=== PATIENT | female | born 1940 | race Caucasian/White ===

== ENCOUNTER 2019-05-02 23:15 | Observation (INO) | payer MEDICARE, OTHER, SELFPAY ==
[2019-05-02 23:18] VITALS: BP 156/103; PULSE 125; RESP 22; TEMP 36.6; O2SAT 94; BMI 29.8
--- NOTE | 2019-05-02 23:21 | XR_ITS ---
WS: [id number] CHEST XRAY TECHNIQUE: Portable chest. CLINICAL INFORMATION: cough COMPARISON: March 06, 2019 FINDINGS: Heart: Normal cardiac silhouette. Lungs: Chronic emphysematous changes. No acute pulmonary infiltrates. No focal pneumonia. Bones: Normal visualized bony structures. XR/XR chest 1V portable [id number] IMPRESSION: No acute chest findings
--- NOTE | 2019-05-02 23:21 | ECG_ITS ---
Measurements Intervals [place] Rate: 113 P: 57 ND: 152 QRS: 12 QRSD: 126 T: 74 QT: 347 QTc: 477 SINUS TACHYCARDIA WITH OCCASIONAL VENTRICULAR PREMATURE COMPLEXES LEFT BUNDLE BRANCH BLOCK [120+ ms QRS DURATION, 80+ ms Q/S IN V1/V2, 85+ ms R IN I/aVL/V5/V6] WARNING: DATA QUALITY MAY AFFECT INTERPRETATION Compared to ECG 03/06/2019 17:18:59 Ventricular premature complex(es) now present Left bundle-branch block now present Sinus rhythm no longer present Myocardial infarct finding no longer present Electronically Signed On 05-03-2019 18:32:56 STAFFING OPERATIONS MANAGER by Laurent Lynch M.D. [id number]
--- NOTE | 2019-05-02 23:24 | ED_ITS ---
Entered by Noa Gaines, acting as scribe for Maddy Khan HPI - Chest Pain General: Chief Complaint: Chest Pain Stated Complaint: CP, SOB Time Seen by Provider: 05/02/19 23:20 Source: patient Mode of arrival: ambulatory Limitations: no limitations History of Present Illness: HPI narrative: 79 yo m came to the er pov for chest pain. Onset was today. Pt states that she has had a cold for 3 weeks. PT states that the chest pain feels heavy started 2 hours ago. Pt states that she tried her breathing machine, Pt is not having any nausea or vomiting at this time. MD complaint: chest pain Pertinent past history: other (CHF) Onset (ago): hour(s) (2 hours ago) Timing of current episode: episodic and still present Prior episodes: Yes Onset: during rest Pain location: substernal Pain radiation: none Severity: mild Quality: heaviness Relieving factors: nothing Exacerbating factors: nothing Context: recent illness Associated symptoms: Reports dyspnea; Deny abdominal pain, diaphoresis, fever(s), nausea, palpitations, syncope or vomiting Related Data: On Oral Contraceptives: No Review of Systems General: Reports: other (negative unless marked) Const: Denies: fever, chills, body aches, fatigue, malaise or diaphoresis Eyes: Denies: change in vision or blurry vision ENMT: Denies: throat pain, painful swallowing, hoarseness, ear pain, ear discharge, Change in hearing or nasal discharge Card: Reports: chest pain and shortness of breath on exertion; Denies: palpitations, irregular heart rhythm, syncope, pre-syncope or shortness of breath when lying down Resp: Reports: shortness of breath, productive cough and wheezing; Denies: non-productive cough, coughing up blood or chest congestion GI: Denies: abdominal pain, nausea, vomiting, vomiting blood, coffee grounds in vomit, diarrhea, constipation, cramping, blood in stool or black tarry stool : Denies: flank pain, painful urination, urinary frequency, urinary urgency, decreased urine ouput, urinary incontinence or blood in urine Musc: Denies: neck pain, back pain, extremity pain, extremity swelling, joint pain, joint swelling, joint warmth or joint stiffness Skin/Breast: Denies: rash, skin tenderness or yellow skin Neuro: Denies: headache, numbness in extremities, weakness in extremities, changes in sensation, lack of coordination, difficulty walking, dizziness, vertigo or confusion Endo: Denies: excessive thirst, tired all the time, cold intolerance, excessive sweating, flushing or hot flashes Ayaan/Lymph: Denies: easy bruising, easy bleeding, petechiae or enlarged lymph nodes All/Imm: Denies: hives, throat swelling, tongue swelling, facial swelling or acute wheezing PFSH ED PFSH: Statuses (acute, chronic, etc) shown below reflect problem list status as previously entered and may not be historically accurate Medical History Atrial fibrillation (Acute) CHF (congestive heart failure) (Acute) Chronic anticoagulation (Acute) CKD stage 3 due to type 2 diabetes mellitus (Acute) COPD (chronic obstructive pulmonary disease) (Acute) CVA (cerebral vascular accident) (Acute) Diabetes mellitus (Acute) Gastroesophageal reflux (Acute) GI disease (Acute) Heart disease (Acute) Heart failure with preserved ejection fraction (Acute) Hypertension (Acute) Lung disease (Acute) Neuropathy (Acute) Peripheral neuropathy (Acute) Pulmonary embolism (Acute) Smoker (Acute) Surgical History H/O tubal ligation (Acute) H/O: hemorrhoidectomy (Acute) Family History Denies family history of CAD (coronary artery disease) Cancer Social History Smoking and tobacco status: never smoked Alcohol intake: never Substance/Drug Use: never Household members: spouse Housing: House Marital status: Physical Exam Const: COMMON NORMALS: no apparent distress, oriented x3, no limitations, healthy appearing and well nourished EXAM LIMITATIONS: no altered mental status GENERAL APPEARANCE: cooperative, well kempt and well developed ORIENTATION/CONSCIOUSNESS: Yes awake HENMT: COMMON NORMALS: normocephalic, head/scalp atraumatic, hearing grossly normal bilaterally, external ears normal, EAC's normal, external nose normal and moist oral mucous membranes HEAD & SCALP: normal to inspection, normocephalic and atraumatic FACE & SINUS: normal facial exam and face symmetric NOSE: external nose normal and nares normal EXTERNAL EAR: Yes external ears normal EXTERNAL AUDITORY CANAL: EAC's normal MOUTH: oral and palatal mucosa normal and tongue normal Eye: COMMON NORMALS: PERRL, EOMs intact bilaterally, conjunctivae normal and no scleral icterus GENERAL EYE: normal appearance of both eyes and normal light reflex CONJUNCTIVA: Yes conjunctivae normal SCLERA: sclerae normal CORNEA: Yes corneas normal PUPIL: Yes PERRL DIRECT OPHTHALMOSCOPY: Yes normal light reflex Neck/C-Spine: COMMON NORMALS: full ROM, no lymphadenopathy, supple, no meningeal signs and no JVD GENERAL: Yes normal visual inspection and Yes trachea midline CERVICAL SPINE: Yes cervical ROM normal Chest: COMMONS NORMALS: inspection of chest normal and palpation of chest normal Resp: EFFORT & INSPECTION: Yes pursed lip breathing, Yes labored, Yes actively coughing and Yes audible wheezes AUSCULTATION: rhonchi and wheezes Cardio: COMMON NORMALS: no JVD, S1 normal heart sound, S2 normal heart sound, no gallops, no clicks, no murmurs and no rub JUGULAR VENOUS DISTENTION: no JVD RATE: tachycardic RHYTHM: abnormal rhythm irregularly irregular HEART SOUNDS: S1 normal and S2 normal GI: COMMON NORMALS: soft to palpation, non-tender, no hepatosplenomegaly and no masses INSPECTION: Yes normal to inspection PALPATION: Yes soft and Yes no hepatosplenomegaly : COMMON NORMALS: Yes no CVA tenderness BLADDER/KIDNEY EXAM: Yes no CVA tenderness Back/Pelvis: COMMON NORMALS: no CVA tenderness, thoracic and lumbar spine normal to inspection, no thoracic nor lumbar tenderness and thoraco-lumbar ROM normal Extremity: COMMON NORMALS: normal to inspection, full ROM, normal capillary refill, no joint enlargement, no clubbing, cyanosis or edema and no calf tenderness Neuro: COMMON NORMALS: oriented x3, CN's II-XII intact bilaterally, moves all extremities, no focal motor deficits and no sensory deficits noted MENINGEAL SIGNS: Yes no meningeal signs Psych: COMMON NORMALS: mental status grossly normal, thought process normal, cooperative, affect normal, speech normal and activity/motor behavior normal APPEARANCE: Yes well kempt SPEECH: Yes normal speech THOUGHT PROCESS: normal thought process Skin: COMMON NORMALS: no rashes or lesions noted, skin turgor normal, no jaundice, no petechiae and no mottling GENERAL SKIN EXAM: no rashes or lesions noted and turgor normal Course Vital Signs: Vital signs: Vital Signs Temperature 98.3 F 05/03/19 03:22 Pulse Rate 114 H 05/03/19 03:35 Respiratory Rate 17 05/03/19 03:35 Blood Pressure 153/82 05/03/19 03:22 Pulse Oximetry 96 05/03/19 03:35 MDM - Chest Pain MDM Narrative: Medical decision making narrative: Arrival -Janet is a very nice 79-year-old female who comes in complaining of chest heaviness. Her vital signs reveal tachycardia. She is short of breath. She claims at times she is been diaphoretic with this. Differential is considerable including COPD exacerbation, heart failure exacerbation, acute coronary syndrome, anxiety, pulmonary embolism among many others. PE is unlikely as the patient is on Eliquis. Patient has audible wheezing so I believe COPD exacerbation is more likely we will proceed with testing and treatments of her shortness of breath with nebulizers and steroids and reevaluate. Admit -the patient is very anxious and even with anxiety medication has not tolerated BiPAP and was barely able to tolerate breathing treatments. She repeatedly had to have these interrupted because of her anxiety. Ultimately she feels about 25% better and can still speak and has no conversational dyspnea. On repeat exam she has inspiratory and expiratory wheezing but is moving more air than previous. We attempted BiPAP but she did not tolerate this at all. We had given her a small dose of Ativan to decrease her anxiety so that she would tolerate BiPAP and I had reviewed this with Dr. Faustin and he agreed that a small dose would be appropriate for this reason to not exceed this. Unfortunately it did not work. I have informed her that the most I can continue to do at this time is intermittent breathing treatments and hopefully the steroids will kick in and she will feel better. She is agreeable to this and wants to stay. I see no sign of acute OH as the patient's second troponin is negative. She did receive nitroglycerin but had no improvement from this. The case was reviewed with Dr. Faustin and he is agreeable to admission. Lab Data: Attestation: I reviewed the patient's lab results. Labs: Lab Results 05/02/19 05/02/19 05/02/19 Range/Units 23:38 23:38 23:38 WBC 9.6 (4.0-10.0) 10^3/ uL RBC 4.16 (4.1-5.3) 10^6/u L Hgb 13.5 (11.5-15.3) g/dL Hct 41.1 (37.0-47.0) % MCV 98.8 (81-99) fL MCH 32.5 (28.0-34.0) pg MCHC 32.8 (30.0-36.0) g/dL RDW 12.0 L (12.1-15.1) % Plt Count 318 (130-400) 10^3/c mm MPV 11.4 H (7.4-10.4) fL Neut % (Auto) 66.0 % Lymph % (Auto) 23.6 % Love % (Auto) 6.9 % Eos % (Auto) 2.6 % Baso % (Auto) 0.6 % Neut # (Auto) 6.3 (1.8-7.7) 10^3/u L Lymph # (Auto) 2.3 (0.8-4.8) 10^3/u L Love # (Auto) 0.7 (0.2-0.9) 10^3/u L Eos # (Auto) 0.3 (0.0-0.8) 10^3/u L Baso # (Auto) 0.1 (0.0-0.1) 10^3/u L Nucleated RBC % (a uto) 0 % Nucleated RBCs # 0.0 /100WBC PT 14.40 H (10.5-13.3) SECO NDS INR 1.08 (0.8-1.2) Specimen Type Sample Site ABG pH (7.35-7.45) ABG pCO2 (35-45) mmHg ABG pO2 (80.0-100.0) mmH g ABG HCO3 (22-26) mmol/L ABG Base Excess (-2.0-2.0) mmol/ L Pratik Test Hematocrit (37-47) % O2 Delivery Device O2 Liters/Min % Parts Counterperson ID Sodium 138 (136-145) mmol/L Potassium 3.8 (3.5-5.1) mmol/L Chloride 94 L (98-107) mmol/L Carbon Dioxide 28 (22-29) mmol/L Anion Gap 19.8 H (5-19) BUN 24 H (8-23) mg/dL Creatinine 1.1 H (0.5-0.9) mg/dL Glucose 371 H (74-106) mg/dL Calcium 11.8 H (8.5-10.5) mg/dL Magnesium 1.8 (1.7-2.3) mg/dL Total Bilirubin 0.4 (0.15-1.2) mg/dL AST 46 H (0-32) U/L ALT 53 H (0-33) U/L Alkaline Phosphata se 76 (35-105) IU/L Troponin T Baselin e (0-10) ng/mL Troponin T 120 Min [place] (0-10) ng/mL Delta Troponin T (0-10) ABS# NT-Pro-B Natriuret Pep 254 (0-450) pg/mL Total Protein 7.5 (6.6-8.7) g/dL Albumin 4.2 (3.5-5.2) g/dL Globulin 3.3 (1.3-4.6) g/dL Influenza Type A A g (Negative) POC Influenza B Ag (Negative) 05/02/19 05/02/19 05/02/19 Range/Units 23:38 23:49 23:57 WBC (4.0-10.0) 10^3/ uL RBC (4.1-5.3) 10^6/u L Hgb (11.5-15.3) g/dL Hct (37.0-47.0) % MCV (81-99) fL MCH (28.0-34.0) pg MCHC (30.0-36.0) g/dL RDW (12.1-15.1) % Plt Count (130-400) 10^3/c mm MPV (7.4-10.4) fL Neut % (Auto) % Lymph % (Auto) % Love % (Auto) % Eos % (Auto) % Baso % (Auto) % Neut # (Auto) (1.8-7.7) 10^3/u L Lymph # (Auto) (0.8-4.8) 10^3/u L Love # (Auto) (0.2-0.9) 10^3/u L Eos # (Auto) (0.0-0.8) 10^3/u L Baso # (Auto) (0.0-0.1) 10^3/u L Nucleated RBC % (a uto) % Nucleated RBCs # /100WBC PT (10.5-13.3) SECO NDS INR (0.8-1.2) Specimen Type Arterial Sample Site Brachial, right ABG pH 7.46 H (7.35-7.45) ABG pCO2 41.8 (35-45) mmHg ABG pO2 111.0 H (80.0-100.0) mmH g ABG HCO3 29.6 H (22-26) mmol/L ABG Base Excess 5.2 H (-2.0-2.0) mmol/ L Pratik Test Pos Hematocrit 40.9 (37-47) % O2 Delivery Device Nc O2 Liters/Min 2.0 % Parts Counterperson ID [email or web address] Sodium (136-145) mmol/L Potassium (3.5-5.1) mmol/L Chloride (98-107) mmol/L Carbon Dioxide (22-29) mmol/L Anion Gap (5-19) BUN (8-23) mg/dL Creatinine (0.5-0.9) mg/dL Glucose (74-106) mg/dL Calcium (8.5-10.5) mg/dL Magnesium (1.7-2.3) mg/dL Total Bilirubin (0.15-1.2) mg/dL AST (0-32) U/L ALT (0-33) U/L Alkaline Phosphata se (35-105) IU/L Troponin T Baselin e 27 H (0-10) ng/mL Troponin T 120 Min [place] (0-10) ng/mL Delta Troponin T (0-10) ABS# NT-Pro-B Natriuret Pep (0-450) pg/mL Total Protein (6.6-8.7) g/dL Albumin (3.5-5.2) g/dL Globulin (1.3-4.6) g/dL Influenza Type A A g Negative (Negative) POC Influenza B Ag Negative (Negative) 05/03/19 Range/Units 01:29 WBC (4.0-10.0) 10^3/ uL RBC (4.1-5.3) 10^6/u L Hgb (11.5-15.3) g/dL Hct (37.0-47.0) % MCV (81-99) fL MCH (28.0-34.0) pg MCHC (30.0-36.0) g/dL RDW (12.1-15.1) % Plt Count (130-400) 10^3/c mm MPV (7.4-10.4) fL Neut % (Auto) % Lymph % (Auto) % Love % (Auto) % Eos % (Auto) % Baso % (Auto) % Neut # (Auto) (1.8-7.7) 10^3/u L Lymph # (Auto) (0.8-4.8) 10^3/u L Love # (Auto) (0.2-0.9) 10^3/u L Eos # (Auto) (0.0-0.8) 10^3/u L Baso # (Auto) (0.0-0.1) 10^3/u L Nucleated RBC % (a uto) % Nucleated RBCs # /100WBC PT (10.5-13.3) SECO NDS INR (0.8-1.2) Specimen Type Sample Site ABG pH (7.35-7.45) ABG pCO2 (35-45) mmHg ABG pO2 (80.0-100.0) mmH g ABG HCO3 (22-26) mmol/L ABG Base Excess (-2.0-2.0) mmol/ L Pratik Test Hematocrit (37-47) % O2 Delivery Device O2 Liters/Min % Parts Counterperson ID Sodium (136-145) mmol/L Potassium (3.5-5.1) mmol/L Chloride (98-107) mmol/L Carbon Dioxide (22-29) mmol/L Anion Gap (5-19) BUN (8-23) mg/dL Creatinine (0.5-0.9) mg/dL Glucose (74-106) mg/dL Calcium (8.5-10.5) mg/dL Magnesium (1.7-2.3) mg/dL Total Bilirubin (0.15-1.2) mg/dL AST (0-32) U/L ALT (0-33) U/L Alkaline Phosphata se (35-105) IU/L Troponin T Baselin e (0-10) ng/mL Troponin T 120 Min [place] 22.47 H (0-10) ng/mL Delta Troponin T -4.53 L (0-10) ABS# NT-Pro-B Natriuret Pep (0-450) pg/mL Total Protein (6.6-8.7) g/dL Albumin (3.5-5.2) g/dL Globulin (1.3-4.6) g/dL Influenza Type A A g (Negative) POC Influenza B Ag (Negative) EKG Data^: EKG 1: EKG interpretation date: 05/03/19 EKG interpretation time: 23:32 Interpretation: Normal sinus rhythm at 113 beats a minute, left bundle branch block, artifact present, PVC, unchanged from previous with a new left bundle branch block Discharge Plan Discharge Patient Disposition: Placed in Observation Admit Provider: Laurent Faustin Clinical Impression: COPD (chronic obstructive pulmonary disease) Qualifiers: COPD type: COPD with acute exacerbation Qualified Code(s): J44.1 - Chronic obstructive pulmonary disease with (acute) exacerbation Discharge Date/Time: 05/03/19 03:23 Coding Level of Care Code ED Human Resource Officer for Chg Fwd Exam Problem Focused The documentation recorded by the Eder fry Stephanie Lyn, accurately reflects the service I personally performed and the decisions made by Bill poon Eli N May 02, 2019 23:15
[2019-05-02 23:51] LABS: Basophils # 0.1 10^3/uL (0.0-0.1); Basophils % 0.6 %; Eosinophils # 0.3 10^3/uL (0.0-0.8); Eosinophils % 2.6 %; Hematocrit 41.1 % (37.0-47.0); Hemoglobin 13.5 g/dL (11.5-15.3); Lymphocytes # 2.3 10^3/uL (0.8-4.8); Lymphocytes % 23.6 %; Mean Corpuscular HGB Conc 32.8 g/dL (30.0-36.0); Mean Corpuscular Hemoglobin 32.5 pg (28.0-34.0); Mean Corpuscular Volume 98.8 fL (81-99); Mean Platelet Volume 11.4 fL (7.4-10.4); Monocytes # 0.7 10^3/uL (0.2-0.9); Monocytes % 6.9 %; Neutrophils # 6.3 10^3/uL (1.8-7.7); Nucleated Red Blood Cells % 0 %; Platelet Count 318 10^3/cmm (130-400); Red Blood Count 4.16 10^6/uL (4.1-5.3); White Blood Count 9.6 10^3/uL (4.0-10.0)
[2019-05-02] MEDS: ipratropium 0.5 mg/2.5 mL Neb 1.5 MG INHALATION (23:53)
[2019-05-02] MEDS: levalbuterol 1.25 mg/3 mL Neb 3.75 MG INHALATION (23:53)
[2019-05-02 23:55] VITALS: PULSE 110; RESP 19; O2SAT 95
[2019-05-03] VITALS (19 sets, daily range): BP systolic 94–153; BP diastolic 56–84; PULSE 86–124; RESP 17–35; TEMP 36.6–36.8; O2SAT 82–100
[2019-05-03 00:02] LABS: INR 1.08 (0.8-1.2)
[2019-05-03 00:08] LABS: ABG PCO2 41.8 mmHg (35-45); ABG PH Result 7.46 (7.35-7.45); Arterial Blood Gas Hematocrit 40.9 % (37-47); Base Excess ABG 5.2 mmol/L (-2.0-2.0); Blood Gas Allen Test Pos; Blood Gas Sample Site Brachial, right; Blood Gas Sample Type Arterial; HCO3 ABG 29.6 mmol/L (22-26); Oxygen Device NC
[2019-05-03 00:10] LABS: Troponin(5th) Baseline 27 ng/mL (0-10)
[2019-05-03 00:17] LABS: Alanine Aminotransferase 53 U/L (0-33); Albumin Level 4.2 g/dL (3.5-5.2); Alkaline Phosphatase 76 IU/L (35-105); Anion Gap 19.8 (5-19); Aspartate Amino Transferase 46 U/L (0-32); Blood Urea Nitrogen 24 mg/dL (8-23); Calcium 11.8 mg/dL (8.5-10.5); Carbon Dioxide 28 mmol/L (22-29); Chloride 94 mmol/L (98-107); Globulin 3.3 g/dL (1.3-4.6); Glucose 371 mg/dL (74-106); Magnesium 1.8 mg/dL (1.7-2.3); NT Pro B Type Natriuretic Pept 254 pg/mL (0-450); Potassium 3.8 mmol/L (3.5-5.1); Sodium 138 mmol/L (136-145); Total Bilirubin 0.4 mg/dL (0.15-1.2); Total Protein 7.5 g/dL (6.6-8.7)
[2019-05-03 00:22] LABS: Influenza A by IFA Negative (Negative); Influenza B by IFA Negative (Negative)
[2019-05-03] MEDS: nitroglycerin 0.4 mg sublingual Tablet SUBLINGUAL (00:28)
--- NOTE | 2019-05-03 00:39 | PC.NURSE ---
Patient c/o inability of breathe, dr. wong at bedside, marvin advised patient to attempt another breathing treatment
--- NOTE | 2019-05-03 01:21 | ECG_ITS ---
Measurements Intervals [place] Rate: 115 P: 65 GA: 180 QRS: -2 QRSD: 135 T: 153 QT: 360 QTc: 500 SINUS TACHYCARDIA WITH OCCASIONAL VENTRICULAR PREMATURE COMPLEXES LEFT BUNDLE BRANCH BLOCK [120+ ms QRS DURATION, 80+ ms Q/S IN V1/V2, 85+ ms R IN I/aVL/V5/V6] Compared to ECG 03/06/2019 17:18:59 Ventricular premature complex(es) now present Left bundle-branch block now present Sinus rhythm no longer present Myocardial infarct finding no longer present Electronically Signed On 05-03-2019 18:36:40 TRACK BROOM OPERATOR by Laurent Lynch M.D. [id number]
[2019-05-03] MEDS: ondansetron 2 mg/ML SDV 2 mL 4 MG IVP (01:25)
[2019-05-03] MEDS: LORazepam 2 mg/mL INJ 1 mL 0.25 MG IVP ×2 (01:26→01:55)
[2019-05-03 02:18] LABS: Troponin 5 2HR 22.47 ng/mL (0-10)
[2019-05-03 02:26] LABS: Troponin 5 2HR Delta -4.53 ABS# (0-10)
--- NOTE | 2019-05-03 02:32 | P.HP_ITS ---
Providers/Chief Complaint Chief Complaint: CHEST PAIN History of Present Illness Janet Cooper is a 79 year old female who carries diagnosis of COPD and uses oxygen on as-needed basis not on appropriate COPD inhalers at home came in with chief complaint of shortness of breath. Patient is stating that for last few weeks she has been getting more shortness of breath. Earlier it was only on exertion now is happening at rest and because of her increased breathing rate she started feeling some chest discomfort underneath her breasts bilaterally which made her very anxious, she is denying any fever, flulike symptoms, sinusitis, she is endorsing that she thinks her ears are plugged and she experienced sore throat along her symptoms. She did not take any antibiotics. No recent traveling, no fever, cough, sputum production, dysuria, diarrhea or constipation. She is not very active at home because of her arthritis and multiple surgeries. She is on Eliquis, she takes Cardizem 300 mg for A. fib, she only takes albuterol nebulizer and inhaler at home she does not have any laba, Lama, ICS Diagnostics in ER showed respiratory alkalosis normal white count, she had audible wheezing on admission with pursed lip breathing which improved with steroids, she is claustrophobic and cannot use BiPAP, she was given Ativan to decrease her respiratory rate and work of breathing BNP not high X-ray negative for acute pathology EKG did not show ischemic changes When I interviewed her she was calmer, systolic blood pressure was 140, heart rate 122 A. fib RVR Mild wheezing but no conversational dyspnea Review of Systems Const: Reports: body aches, fatigue and malaise; Denies: fever, chills or change in appetite Eyes: Denies: change in vision or blurry vision ENMT: Denies: throat pain or uvular edema Card: Reports: chest pain, palpitations and irregular heart rhythm; Denies: edema or syncope Resp: Reports: shortness of breath, non-productive cough and wheezing GI: Denies: abdominal pain or nausea : Reports: urinary dribbling; Denies: flank pain Musc: Reports: back pain; Denies: neck pain Skin/Breast: Denies: rash Neuro: Denies: headache Psych: Denies: anxiety Endo: Denies: excessive urination Ayaan/Lymph: Denies: easy bruising All/Imm: Denies: hives Medications/Allergies Allergies Allergy/AdvReac Type Severity Reaction Status Date / Time Penicillins Allergy ALGY-Hives Verified 05/02/19 23:24 spironolactone Allergy ADR-Nausea Verified 05/02/19 23:24 Sulfa (Sulfonamide Allergy ADR-Nausea Verified 05/02/19 23:24 Antibiotics) sulfamethoxazole Allergy ADR-Nausea Verified 05/02/19 23:24 [From Bactrim] trimethoprim [From Bactrim] Allergy ADR-Nausea Verified 05/02/19 23:24 PFSH Acute PFSH: Statuses (acute, chronic, etc) shown below reflect problem list status as previously entered and may not be historically accurate Medical History Atrial fibrillation (Acute) CHF (congestive heart failure) (Acute) Chronic anticoagulation (Acute) CKD stage 3 due to type 2 diabetes mellitus (Acute) COPD (chronic obstructive pulmonary disease) (Acute) CVA (cerebral vascular accident) (Acute) Diabetes mellitus (Acute) Gastroesophageal reflux (Acute) GI disease (Acute) Heart disease (Acute) Heart failure with preserved ejection fraction (Acute) Hypertension (Acute) Lung disease (Acute) Neuropathy (Acute) Peripheral neuropathy (Acute) Pulmonary embolism (Acute) Smoker (Acute) Surgical History (Updated 05/02/19 @ 23:52 by Noa Gaines) H/O tubal ligation (Acute) H/O: hemorrhoidectomy (Acute) Family History (Updated 05/03/19 @ 03:10 by Laurent Faustin MD) Denies family history of CAD (coronary artery disease) Cancer Social History (Updated 05/03/19 @ 03:10 by Laurent Faustin MD) Smoking and tobacco status: never smoked Alcohol intake: never Substance/Drug Use: never Household members: spouse Housing: House Marital status: Vitals/I&O/Wt Last Vital Signs Temp 98 F 05/02/19 23:18 Pulse 116 H 05/03/19 02:00 Resp 20 H 05/03/19 02:00 BP 104/67 05/03/19 02:00 Pulse Ox 94 05/03/19 02:00 Weight last 48 hrs Weight 94.347 kg Physical Exam Narrative: EXAM NARRATIVE: Very pleasant female Currently she does not have any pursed lip breathing or audible wheezing no conversational dyspnea no use of respiratory accessory muscle She has mild expiratory wheezing bilaterally with adequate airflow bilaterally A. fib RVR variable S1-S2 no signs of heart failure positive JVD or murmur Abdomen soft nontender nondistended bowels are present Lower extremity no signs of edema Skin does not show any signs of ischemia gangrene ulcer Neurologically nonfocal exam Appropriate mood and affect She appears very anxious and is claustrophobic to use BiPAP. EOMI, PERRLA Hyperemic posterior pharyngeal wall without any exudative changes Data : 05/02/19 23:38 05/02/19 23:38 A&P Assessment and plan (1) COPD exacerbation: Status: Acute Code(s): J44.1 - Chronic obstructive pulmonary disease with (acute) exacerbation (2) Bronchitis: Status: Acute Code(s): J40 - Bronchitis, not specified as acute or chronic Additional A&P Information COPD exacerbation secondary to upper airway infection Patient is not on appropriate medications at home she is only using short acting beta agonist She is not using inhaled steroids on long-acting muscarinic antgonist or long- acting beta agonist Currently her wheezing has improved steroids, she cannot use BiPAP because of claustrophobia I will keep her on prednisone 40 mg for at least 2 to 3 days Will use a azithromycin for anti-inflammatory effect and upper airway infection No signs of pneumonia A. fib RVR Will check TSH, magnesium level, she takes Cardizem 300 mg at home I would add Coreg for better rate control Anticoagulated with Eliquis To avoid tachycardia would use Xopenex Chronic PE, anticoagulated with Eliquis Type 2 diabetes with neuropathy: Moderate sliding scale with consistent carbohydrate diet Anticipating she will be discharged in less than 48 hours She needs better medication reconciliation for discharge and a consult to partner Dr. Bassett for better control of symptoms, she might like [facility] Attestations Medical Necessity Statement*: Anticipating her discharge in less than 48 hours, currently needs stay for active wheezing because of COPD exacerbation better medication reconciliation on discharge Time Spent in Patient Care: 50 Coding Level of Care Code Acute Cross Country/Track And Field Coach for Jarettg Fwd Diagnoses COPD exacerbation J44.1 Bronchitis J40
[2019-05-03] MEDS: doxycycline 100 mg Tablet 200 MG PO (02:46)
--- NOTE | 2019-05-03 03:23 | PC.NURSE ---
called report to Shruthi on
[2019-05-03] MEDS: levalbuterol 0.63 mg/3 mL Neb INHALATION ×4 (03:35→20:35)
--- NOTE | 2019-05-03 05:21 | ECG_ITS ---
Measurements Intervals [place] Rate: 112 P: 51 WI: 248 QRS: -23 QRSD: 130 T: -4 QT: 372 QTc: 510 SINUS TACHYCARDIA WITH FIRST DEGREE AV BLOCK WITH OCCASIONAL ECTOPIC PREMATURE COMPLEXES POSSIBLE LEFT ATRIAL ENLARGEMENT [-0.1mV P WAVE IN V1/V2] LEFT BUNDLE BRANCH BLOCK [120+ ms QRS DURATION, 80+ ms Q/S IN V1/V2, 85+ ms R IN I/aVL/V5/V6] Compared to ECG 03/06/2019 17:18:59 First degree AV block now present Left bundle-branch block now present Sinus rhythm no longer present Myocardial infarct finding no longer present Electronically Signed On 05-03-2019 18:36:45 MANNEQUIN MOUNTER by Laurent Lynch M.D. [id number]
[2019-05-03] MEDS: sodium chloride 0.9% 1,000 ML 100 ML IV (05:29)
[2019-05-03 06:23] LABS: Basophils % 0.3 %; Eosinophils % 0.1 %; Hematocrit 39.8 % (37.0-47.0); Hemoglobin 12.9 g/dL (11.5-15.3); Lymphocytes # 0.5 10^3/uL (0.8-4.8); Lymphocytes % 5.9 %; Mean Corpuscular HGB Conc 32.4 g/dL (30.0-36.0); Mean Corpuscular Hemoglobin 32.6 pg (28.0-34.0); Mean Corpuscular Volume 100.5 fL (81-99); Mean Platelet Volume 11.8 fL (7.4-10.4); Monocytes # 0.1 10^3/uL (0.2-0.9); Neutrophils # 7.4 10^3/uL (1.8-7.7); Neutrophils % 92.2 %; Nucleated Red Blood Cells % 0 %; Platelet Count 278 10^3/cmm (130-400); Red Blood Count 3.96 10^6/uL (4.1-5.3)
[2019-05-03 06:43] LABS: Glucose Point of Care 497 mg/dL (70-110)
[2019-05-03 06:44] LABS: Troponin 5 6HR 24.38 ng/L (0-10)
[2019-05-03 06:47] LABS: Troponin 5 6HR Delta -2.62 ng/L (0-12)
[2019-05-03 07:09] LABS: Anion Gap 20.2 (5-19); Blood Urea Nitrogen 27 mg/dL (8-23); Calcium 11.3 mg/dL (8.5-10.5); Carbon Dioxide 27 mmol/L (22-29); Chloride 92 mmol/L (98-107); Magnesium 1.7 mg/dL (1.7-2.3); Osmolality Calculated 301 mOsm/kg (285-295); Potassium 4.2 mmol/L (3.5-5.1); Sodium 135 mmol/L (136-145); Thyroid Stimulating Hormone 0.45 uIU/mL (0.27-4.20)
[2019-05-03 07:12] LABS: Glucose 528 mg/dL (74-106)
[2019-05-03] MEDS: predniSONE 20 mg Tablet 40 MG PO (08:49)
[2019-05-03] MEDS: dilTIAZem ER (24HR) 300 mg Capsule PO (08:49)
[2019-05-03] MEDS: azithromycin 250 mg Tablet PO (08:49)
[2019-05-03] MEDS: carvedilol 6.25 mg Tablet PO ×2 (08:49→17:58)
[2019-05-03] MEDS: apixaban 5 mg Tablet 2.5 MG PO ×2 (08:50→17:58)
[2019-05-03] MEDS: ipratropium 0.5 mg/2.5 mL Neb INHALATION ×3 (09:46→20:35)
[2019-05-03 11:53] LABS: Glucose Point of Care 550 mg/dL (70-110)
[2019-05-03 11:53] LABS: Glucose Point of Care 541 mg/dL (70-110)
--- NOTE | 2019-05-03 12:28 | PC.NURSE ---
Notified Dr. Carl of BS greater than 500. She advised to follow SS and administer 16 units.
[2019-05-03 16:21] LABS: Glucose Point of Care 346 mg/dL (70-110)
[2019-05-03 17:45] LABS: Glucose Point of Care 284 mg/dL (70-110)
[2019-05-03] MEDS: acetaminophen 325 mg Tablet 650 MG PO (21:26)
--- NOTE | 2019-05-03 21:35 | PM.PN ---
Subjective Subjective: Interval history: seen and examined this afternoon at ~4pm. No complaints. States breathing is significantly improved. Blood sugar running high this afternoon at ~500s, last anion gap 20 this morning, with sliding scale insulin, last blood sugar corrected to 284. No h/o insulin use at home. Last a1c 6.1 per patient history. 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 reports no previously spirometry testing. States she is not aware if 02 was ordered for an alternate diagnosis such as CHF or PE. Currently her wheezing has improved steroids, she cannot use BiPAP because of claustrophobia Reduce Prednisone to 20mg qd given grossly elevated blood sugar. Continue Azithromycin for COPD exacerbation No signs of pneumonia A. fib RVR Currently rate controlled Anticoagulated with Eliquis Chronic PE, anticoagulated with Eliquis Type 2 diabetes with neuropathy: continue moderate sliding scale with meals and corrective as needed. Will avoid aggressive scale in insulin naive patient to prevent insulin stacking and resultant hypoglycemia. Last blood sugar 280s. Check Hba1c. continue with consistent carbohydrate diet Full code Attestations Medical Necessity Statement*: Optimization of respiratory status , management of blood sugar Coding Level of Care Code Acute Manager Pharmacy for [facility] Fwd Diagnoses COPD exacerbation J44.1 Bronchitis J40
[2019-05-03 21:37] LABS: Glucose Point of Care 281 mg/dL (70-110)
[2019-05-04] VITALS (15 sets, daily range): BP systolic 101–119; BP diastolic 59–68; PULSE 68–92; RESP 16–26; TEMP 36.6–36.9; O2SAT 87–97
[2019-05-04 00:38] LABS: Glucose Point of Care 245 mg/dL (70-110)
[2019-05-04] MEDS: LORazepam 0.5 mg Tablet 0.25 MG PO (01:09)
[2019-05-04] MEDS: levalbuterol 0.63 mg/3 mL Neb INHALATION ×4 (03:19→20:09)
[2019-05-04] MEDS: ipratropium 0.5 mg/2.5 mL Neb INHALATION ×4 (03:19→20:09)
[2019-05-04 05:56] LABS: Basophils % 0.1 %; Hematocrit 38.5 % (37.0-47.0); Hemoglobin 12.3 g/dL (11.5-15.3); Lymphocytes # 1.7 10^3/uL (0.8-4.8); Mean Corpuscular HGB Conc 31.9 g/dL (30.0-36.0); Mean Corpuscular Hemoglobin 30.7 pg (28.0-34.0); Mean Platelet Volume 11.5 fL (7.4-10.4); Monocytes # 0.9 10^3/uL (0.2-0.9); Neutrophils # 12.5 10^3/uL (1.8-7.7); Neutrophils % 82.4 %; Nucleated Red Blood Cells % 0 %; Platelet Count 351 10^3/cmm (130-400); Red Blood Count 4.01 10^6/uL (4.1-5.3); Red Cell Distribution Width 11.9 % (12.1-15.1); White Blood Count 15.1 10^3/uL (4.0-10.0)
[2019-05-04 06:07] LABS: Alanine Aminotransferase 44 U/L (0-33); Albumin Level 3.7 g/dL (3.5-5.2); Alkaline Phosphatase 62 IU/L (35-105); Anion Gap 19.3 (5-19); Aspartate Amino Transferase 36 U/L (0-32); Blood Urea Nitrogen 32 mg/dL (8-23); Calcium 11.3 mg/dL (8.5-10.5); Carbon Dioxide 27 mmol/L (22-29); Chloride 96 mmol/L (98-107); Globulin 3.4 g/dL (1.3-4.6); Glucose 176 mg/dL (74-106); Potassium 4.3 mmol/L (3.5-5.1); Sodium 138 mmol/L (136-145); Total Bilirubin 0.5 mg/dL (0.15-1.2); Total Protein 7.1 g/dL (6.6-8.7)
[2019-05-04 07:25] LABS: Estmated Average Glucose 200; Hemoglobin A1C 8.6 % (4.0-6.0)
[2019-05-04] MEDS: apixaban 5 mg Tablet 2.5 MG PO ×2 (08:27→18:31)
[2019-05-04] MEDS: carvedilol 6.25 mg Tablet PO ×2 (08:28→18:31)
[2019-05-04] MEDS: dilTIAZem ER (24HR) 300 mg Capsule PO (08:28)
[2019-05-04] MEDS: predniSONE 20 mg Tablet PO (08:28)
[2019-05-04] MEDS: azithromycin 250 mg Tablet PO (08:32)
[2019-05-04 10:54] LABS: Glucose Point of Care 249 mg/dL (70-110)
--- NOTE | 2019-05-04 13:27 | PC.CHAP ---
Pastoral Care Encounter/Spiritual Assessment Type of Contact [] Declined real estate clerk visit [] Patient/Family/Request visit [] Outpatient visit [] Follow-up visit [] Physician referral [] Code/Alert [] Routine visit [] Staff referral [] Actively dying [x] Patient sleeping [] Family support [] [] Out of room [] Palliative care [] [] Receiving care in room [] Pre-surgical visit [] Trauma [] Long length of stay [] ICU visit [] Other: Relational/Emotional Strength [] Patient feels connected with others/family/visitors/staff [] Distress [] Loneliness/isolation [] Abandonment Spirituality of Patient [] Person of Raine [] Attends Confucianism of their [place] [] Believes in Prayer [] Reads Bible or Jehovah'S Witness materials [] There are Spiritual issues to be addressed Regional Clinical Director Interventions [] Prayer [] Active listening [] Non-anxious presence [] Spiritual/emotional support [] Crisis/trauma care [] Spiritual counseling [] Bereavement support [] Provided bereavement packet [] Provided Bible/devotional materials [] Provided toy/stuffed animal, coloring book to patient or family member [] Provided Communion [] Anointing/[place] [] Salvation [] Completed spiritual assessment [] Other: Impact on Illness or Injury [] Angry [] Fearful [] Anxious [] Often cries [] Exhaustion [] Unable to work [] Unable to attend oriental orthodox [] Unable to walk/stand [] Unable to read [] Unable to drive [] Unable to eat/drink [] Unable to sleep [] Unable to be with family [] Patient intubated [] Other: Summary Patient sleeping. Time spent with patient
--- NOTE | 2019-05-04 14:18 | PM.DCS ---
Discharge Providers Date of Admission: 05/03/19 02:29 Date of Discharge: 05/04/19 Attending Provider at Admission: Laurent Faustin MD Attending Provider at Discharge: Kenya Carl MD Diagnoses at Discharge Discharge Diagnosis (1) COPD exacerbation: Status: Acute (2) Bronchitis: Status: Acute Reason for Visit Reason for Visit: Reason For Visit: CHEST PAIN Hospital Course Discharge Summary: Janet Cooper is a 79 year old female who carries diagnosis of COPD and uses oxygen on as-needed basis COPD inhalers at home came in with chief complaint of shortness of breath. Patient is stating that for last few weeks she has been getting more shortness of breath. Earlier it was only on exertion now is happening at rest and because of her increased breathing rate she started feeling some chest discomfort underneath her breasts bilaterally which made her very anxious, she is denying any fever, flulike symptoms, sinusitis, she is endorsing that she thinks her ears are plugged and she experienced sore throat along her symptoms. She did not take any antibiotics. No recent traveling, no fever, cough, sputum production, dysuria, diarrhea or constipation. She is not very active at home because of her arthritis and multiple surgeries. She is on Eliquis, she takes Cardizem 300 mg for A. fib, she only takes albuterol nebulizer and inhaler at home she does not have any laba, Lama, ICS Diagnostics in ER showed respiratory alkalosis normal white count, she had audible wheezing on admission with pursed lip breathing which improved with steroids, she is claustrophobic and cannot use BiPAP, she was given Ativan to decrease her respiratory rate and work of breathing BNP not high X-ray negative for acute pathology EKG did not show ischemic changes When I interviewed her she was calmer, systolic blood pressure was 140, heart rate 122 A. fib RVR Mild wheezing but no conversational dyspnea Discharge Data Data Completed and Pending: Completed Studies During Hospitalization Category Date Time Status XR chest 1V gio ble [id number] Stat Exams 05/02/19 23:21 Completed Pending at discharge Category Date Time Status Arterial Blood Ga s W/O Coox Routine Lab 05/03/19 11:00 Ordered Labs from last 24 hours 05/04/19 05/04/19 05/04/19 10:36 05:15 05:15 WBC RBC Hgb Hct MCV MCH MCHC RDW Plt Count MPV Neut % (Auto) Lymph % (Auto) [place] % (Auto) Eos % (Auto) Baso % (Auto) Neut # (Auto) Lymph # (Auto) [place] # (Auto) Eos # (Auto) Baso # (Auto) Nucleated RBC % (a uto) Nucleated RBCs # Sodium 138 Potassium 4.3 Chloride 96 L Carbon Dioxide 27 Anion Gap 19.3 H BUN 32 H Creatinine 1.2 H Glucose 176 H POC Glucose 249 Estimat Average Gl ucose 200 Hemoglobin A1c 8.6 H Calcium 11.3 H Total Bilirubin 0.5 AST 36 H ALT 44 H Alkaline Phosphata se 62 Total Protein 7.1 Albumin 3.7 Globulin 3.4 05/04/19 05/04/19 05/03/19 05:15 00:28 21:33 WBC 15.1 H RBC 4.01 L Hgb 12.3 Hct 38.5 MCV 96.0 MCH 30.7 MCHC 31.9 RDW 11.9 L Plt Count 351 MPV 11.5 H Neut % (Auto) 82.4 Lymph % (Auto) 11.0 [place] % (Auto) 6.0 Eos % (Auto) 0.0 Baso % (Auto) 0.1 Neut # (Auto) 12.5 H Lymph # (Auto) 1.7 [place] # (Auto) 0.9 Eos # (Auto) 0.0 Baso # (Auto) 0.0 Nucleated RBC % (a uto) 0 Nucleated RBCs # 0.0 Sodium Potassium Chloride Carbon Dioxide Anion Gap BUN Creatinine Glucose POC Glucose 245 281 Estimat Average Gl ucose Hemoglobin A1c Calcium Total Bilirubin AST ALT Alkaline Phosphata se Total Protein Albumin Globulin 05/03/19 05/03/19 17:41 15:29 WBC RBC Hgb Hct MCV MCH MCHC RDW Plt Count MPV Neut % (Auto) Lymph % (Auto) [place] % (Auto) Eos % (Auto) Baso % (Auto) Neut # (Auto) Lymph # (Auto) [place] # (Auto) Eos # (Auto) Baso # (Auto) Nucleated RBC % (a uto) Nucleated RBCs # Sodium Potassium Chloride Carbon Dioxide Anion Gap BUN Creatinine Glucose POC Glucose 284 346 Estimat Average Gl ucose Hemoglobin A1c Calcium Total Bilirubin AST ALT Alkaline Phosphata se Total Protein Albumin Globulin Vitals: Last Vital Signs Temp 98.0 F 05/04/19 12:00 Pulse 76 05/04/19 12:00 Resp 18 05/04/19 12:00 BP 107/66 05/04/19 12:00 Pulse Ox 97 05/04/19 12:00 Discharge Plan Discharge Prescriptions: No Action gabapentin 300 mg capsule 300 mg PO TID RF: 0 diclofenac sodium 75 mg tablet,delayed release (DR/EC) 75 mg PO BID RF: 0 ascorbic acid (vitamin C) 1,000 mg Tablet 1,000 mg PO BID RF: 0 Klor-Con 10 10 mEq Tablet Extended Release 10 meq PO DAILY RF: 0 diltiazem HCl 300 mg Capsule,Extended Release 24 Hr 300 mg PO DAILY RF: 0 Acetaminophen Extra Strength 500 mg Tablet 500 mg PO QID PRN (Reason: Fever Or Pain) RF: 0 methenamine hippurate 1 gram Tablet 1 g PO BID RF: 0 Lasix 80 mg Tablet 80 mg PO DAILY RF: 0 B Complex-Vitamin B12 Tablet 1 tab PO DAILY RF: 0 albuterol sulfate 90 mcg/actuation Hfa Aerosol Inhaler 2 puff INHALATION QID PRN (Reason: Shortness Of Breath) RF: 0 fluoxetine 20 mg Capsule 20 mg PO DAILY RF: 0 glipizide 5 mg Tablet 5 mg PO BID RF: 0 Eliquis 2.5 mg PO BID RF: 0 Prolia See Rx Instructions .ROUTE .COMPLEX RF: 0 albuterol sulfate 2.5 mg inhalation PRN PRN (Reason: Shortness Of Breath Or Wheezing) RF: 0 Coding Level of Care Code Acute Group Insurance Specialist for [facility] Fwd Diagnoses COPD exacerbation J44.1 Bronchitis J40
[2019-05-04 16:03] LABS: Glucose Point of Care 244 mg/dL (70-110)
[2019-05-04 21:10] LABS: Glucose Point of Care 224 mg/dL (70-110)
--- NOTE | 2019-05-04 21:58 | PM.PN ---
Subjective Subjective: Interval history: patient was seen and examined earlier this morning and then again this afternoon. Was originally planned for discharge as she has improved dyspnea, currently saturating well on 3lpm , which is her home 02 requirement. However, patient has been experiencing anxiety surrounding the discharge and this evening started to complain of feeling no more improved since arrival. She reports feeling as if something is stuck in her throat thats impeding her breathing and states she often hears sounds from the throat followed by shortness of breath. Blod sugar better controlled. 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 reports no previously spirometry testing. States she is not aware if 02 was ordered for an alternate diagnosis such as CHF or PE. Currently her wheezing has improved steroids, she cannot use BiPAP because of claustrophobia Reduce Prednisone to 20mg qd given grossly elevated blood sugar. Continue Azithromycin for COPD exacerbation No signs of pneumonia Though she appears to be clinically improving, patient continues to state she does not feel right. Today reports having throat discomfort and a foreign body sensation Will consult ENT tomorrow A. fib RVR Currently rate controlled Anticoagulated with Eliquis Chronic PE, anticoagulated with Eliquis Type 2 diabetes with neuropathy: continue moderate sliding scale with meals and corrective as needed. Will avoid aggressive scale in insulin naive patient to prevent insulin stacking and resultant hypoglycemia. A1c 8.7, which indicates inadequate blood sugar control in previous months. continue with consistent carbohydrate diet Full code Attestations Medical Necessity Statement*: awaiting symptomatic improvement Coding Level of Care Code Acute Bobbin Cleaner for Zeenat Calderon Diagnoses COPD exacerbation J44.1 Bronchitis J40
[2019-05-05] VITALS (11 sets, daily range): BP systolic 104–127; BP diastolic 50–64; PULSE 66–90; RESP 18–20; TEMP 36.1–37; O2SAT 91–98
[2019-05-05] MEDS: levalbuterol 0.63 mg/3 mL Neb INHALATION ×2 (03:26→10:17)
[2019-05-05] MEDS: ipratropium 0.5 mg/2.5 mL Neb INHALATION ×2 (03:26→10:17)
[2019-05-05 06:41] LABS: Glucose Point of Care 139 mg/dL (70-110)
--- NOTE | 2019-05-05 07:44 | CT_ITS ---
WS: [id number] CT scan of the neck. Additional two-dimensional coronal and sagittal reconstruction was performed. Clinical Data: persisting foreign body sensation in pharynx Comparison: CT neck, 09/20/2017. DLP: 713.[address] scans at [facility] use at least one of these dose optimization techniques: automat ed exposure control; mA and/or kV adjustment per patient size (includes targeted exams where dose is matched to clinical indication); or iterative reconstruction. Findings: No lymphadenopathy is noted. The salivary glands are unremarkable. There is no prevertebral soft tiss ue swelling. The larynx is symmetric. The thyroid gland shows enlargement of the left lobe. The floor of the mouth and parapharyngeal spaces are normal. No radiopaque pharyngeal masses are seen. There i s calcification in the regions of the carotid bifurcations The oral cavity is unremarkable. The patie nt has had bilateral cataract surgery and extensive maxillary dental surgery. The lung apices show no abnormalities. The cervical spine shows osteoarthritic change with loss of no rmal lordotic curvature. There is degenerative disc disease from C3-C4 through C6-C7. No compression fractures are seen. No erosion of the skull base is seen. CT/CT neck wo con [id number] Impression: 1. Negative for abnormal pharyngeal foreign body. 2. No change in left thyroid nodule. 3. Osteoarthritis and degenerative disc disease cervical spine unchanged.
--- NOTE | 2019-05-05 07:45 | CT_ITS ---
WS: [id number] CT CHEST TECHNIQUE: Noncontrast CT of the chest with coronal and sagittal reformatted images. CLINICAL INFORMATION: shortness of breath persistent COMPARISON: CT chest April 01, 2016 DLP: 877.[address] scans at [facility] use at least one of these dose optimization techniques: automat ed exposure control; mA and/or kV adjustment per patient size (includes targeted exams where dose is matched to clinical indication); or iterative reconstruction. FINDINGS: Mild chronic emphysematous changes. No acute pulmonary infiltrates. Slight nodular pleural thickening left upper lobe is unchanged. Pleural fluid along the left fissure. Slight subsegmental atelectasis in the lingula. No suspicious pulmonary parenchymal opacities. Vascular calcification including coron wally. No mediastinal or hilar lymphadenopathy. No axillary lymphadenopathy. Multinodular thyroid gland with thyroid nodules along the isthmus and left lobe unchanged from previo us. Largest nodule in the isthmus measures 2.0 CM. This can be followed up with ultrasound. Diffuse fatty infiltration liver. Adrenal glands are normal. Splenic granulomas. Normal GE junction. Chronic compression of the T12 superior endplate and L1 vertebral body. CT/CT chest wo con [id number] IMPRESSION: 1. Mild chronic emphysematous changes. No acute pulmonary infiltrates. 2. No suspicious pulmonary parenchymal opacities. 3. No mediastinal or hilar lymphadenopathy. 4. Vascular calcification including coronary. 5. Diffuse fatty infiltration liver. 6. Left renal cyst measuring 2.1 cm. 7. Chronic compression superior endplate T12. Chronic biconcave compression at L1.
[2019-05-05] MEDS: azithromycin 250 mg Tablet PO (08:43)
[2019-05-05] MEDS: apixaban 5 mg Tablet 2.5 MG PO ×2 (08:43→17:55)
[2019-05-05 08:44] LABS: Basophils % 0.4 %; Eosinophils # 0.1 10^3/uL (0.0-0.8); Eosinophils % 1.1 %; Hematocrit 37.4 % (37.0-47.0); Lymphocytes % 25.9 %; Mean Corpuscular HGB Conc 32.1 g/dL (30.0-36.0); Mean Corpuscular Hemoglobin 31.2 pg (28.0-34.0); Mean Corpuscular Volume 97.1 fL (81-99); Mean Platelet Volume 11.4 fL (7.4-10.4); Monocytes # 0.5 10^3/uL (0.2-0.9); Neutrophils # 4.9 10^3/uL (1.8-7.7); Neutrophils % 65.2 %; Nucleated Red Blood Cells % 0 %; Platelet Count 269 10^3/cmm (130-400); Red Blood Count 3.85 10^6/uL (4.1-5.3); White Blood Count 7.5 10^3/uL (4.0-10.0)
[2019-05-05] MEDS: predniSONE 20 mg Tablet PO (08:46)
[2019-05-05] MEDS: dilTIAZem ER (24HR) 300 mg Capsule PO (08:46)
[2019-05-05] MEDS: carvedilol 6.25 mg Tablet PO ×2 (08:46→17:56)
[2019-05-05 09:03] LABS: Alanine Aminotransferase 72 U/L (0-33); Albumin Level 3.6 g/dL (3.5-5.2); Alkaline Phosphatase 57 IU/L (35-105); Anion Gap 13.7 (5-19); Aspartate Amino Transferase 103 U/L (0-32); Blood Urea Nitrogen 24 mg/dL (8-23); Calcium 10.7 mg/dL (8.5-10.5); Carbon Dioxide 27 mmol/L (22-29); Chloride 104 mmol/L (98-107); Globulin 2.7 g/dL (1.3-4.6); Glucose 163 mg/dL (74-106); Potassium 3.7 mmol/L (3.5-5.1); Sodium 141 mmol/L (136-145); Total Bilirubin 0.3 mg/dL (0.15-1.2); Total Protein 6.3 g/dL (6.6-8.7)
[2019-05-05 10:38] LABS: Glucose Point of Care 226 mg/dL (70-110)
[2019-05-05 17:05] LABS: Glucose Point of Care 292 mg/dL (70-110)
--- NOTE | 2019-05-05 17:08 | P.DS_ITS ---
Discharge Providers Date of Admission: 05/03/19 02:29 Date of Discharge: Date of Discharge: May 05, 2019 Attending Provider at Admission: Laurent Faustin MD Attending Provider at Discharge: Kenya Carl MD Diagnoses at Discharge Discharge Diagnosis (1) COPD exacerbation: Status: Acute (2) Bronchitis: Status: Acute Reason for Visit Reason for Visit: Reason For Visit: CHEST PAIN Hospital Course Discharge Summary: Janet Cooper is a 79 year old female who carries diagnosis of COPD and uses oxygen on as-needed basis, on albuterol inhaler prn at home. Patient is stating that for last few weeks she has been getting more s hortness of breath. Earlier it was only on exertion now is happening at rest and because of her increased breathing rate she started feeling some chest discomfort underneath her breasts bilaterally which made her very anxious, she is denying any fever, flulike symptoms, sinusitis, she is endorsing that she thinks her ears are plugged and she experienced sore throat along her symptoms. She did not take any antibiotics. No recent traveling, no fever, cough, sputum production, dysuria, diarrhea or constipation. She is on Eliquis for a/c. Diagnostics in ER showed respiratory alkalosis normal white count, she had audible wheezing on admission with pursed lip breathing which improved with steroids, she is claustrophobic and cannot use BiPAP. BNP not high. X-ray and later CT chest non contrast negative for acute pathology. EKG did not show ischemic changes. Troponin was negative. She improved with nebulization, supplemental 02. Hospital course was noatble for hyperglycemia after receiving 125mg iv solumedrol. This improved with insulin use. Her A1c returned at 8.7 indicating suboptimal blood sugar control at home recently. She also remained extremely anxious and on 05/04 complained of sensation something stuck in her throat and making her hard to breathe . CT of the neck was performed. No pharyngeal abnormalities noted. Enlarged thyroid was noted for which patient follows with Dr. Rubi as outpatient. No obstruction from mass. Patient is more relaxed today after results of CT. She will need outpatient follow up with pulmonolgy for further w/up of COPD. For now i have started her on salmetrol/fluticasone and atrovent inhalers. Alubterol can continue prn if needed. Doxycycline was stopped on discharge.AST/ALT were noted to be elevated, may be 2/2 doxycycline which has been discontinued. Will need to be followed up with PCP next week. 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2 Lymph % (Auto) 25.9 [place] % (Auto) 7.0 Eos % (Auto) 1.1 Baso % (Auto) 0.4 Neut # (Auto) 4.9 Lymph # (Auto) 2.0 [place] # (Auto) 0.5 Eos # (Auto) 0.1 Baso # (Auto) 0.0 Nucleated RBC % (a uto) 0 Nucleated RBCs # 0.0 Sodium Potassium Chloride Carbon Dioxide Anion Gap BUN Creatinine Glucose POC Glucose 292 226 Calcium Total Bilirubin AST ALT Alkaline Phosphata se Total Protein Albumin Globulin 05/05/19 05/05/19 05/04/19 08:12 06:29 21:01 WBC RBC Hgb Hct MCV MCH MCHC RDW Plt Count MPV Neut % (Auto) Lymph % (Auto) [place] % (Auto) Eos % (Auto) Baso % (Auto) Neut # (Auto) Lymph # (Auto) [place] # (Auto) Eos # (Auto) Baso # (Auto) Nucleated RBC % (a uto) Nucleated RBCs # Sodium 141 Potassium 3.7 Chloride 104 Carbon Dioxide 27 Anion Gap 13.7 BUN 24 H Creatinine 0.9 Glucose 163 H POC Glucose 139 224 Calcium 10.7 H Total Bilirubin 0.3 AST 103 H ALT 72 H Alkaline Phosphata se 57 Total Protein 6.3 L Albumin 3.6 Globulin 2.7 Vitals: Last Vital Signs Temp 98.6 F 05/05/19 16:48 Pulse 76 05/05/19 16:48 Resp 18 05/05/19 16:48 BP 106/50 05/05/19 16:48 Pulse Ox 91 05/05/19 16:48 Discharge Plan Discharge Patient Disposition: Home, Self-Care Condition: Stable Prescriptions: New Atrovent HFA 17 mcg/actuation HFA aerosol inhaler 1 inh INHALATION Q6H PRN (Reason: shortness of breath or wheezing) Qty: 1 RF: 1 Advair Diskus 250-50 mcg/dose blister with device 1 inh INHALATION BID Qty: 1 RF: 2 Continued gabapentin 300 mg capsule 300 mg PO TID RF: 0 ascorbic acid (vitamin C) 1,000 mg Tablet 1,000 mg PO BID RF: 0 Klor-Con 10 10 mEq Tablet Extended Release 10 meq PO DAILY RF: 0 diltiazem HCl 300 mg Capsule,Extended Release 24 Hr 300 mg PO DAILY RF: 0 Acetaminophen Extra Strength 500 mg Tablet 500 mg PO QID PRN (Reason: Fever Or Pain) RF: 0 methenamine hippurate 1 gram Tablet 1 g PO BID RF: 0 Lasix 80 mg Tablet 80 mg PO DAILY RF: 0 B Complex-Vitamin B12 Tablet 1 tab PO DAILY RF: 0 albuterol sulfate 90 mcg/actuation Hfa Aerosol Inhaler 2 puff INHALATION QID PRN (Reason: Shortness Of Breath) RF: 0 fluoxetine 20 mg Capsule 20 mg PO DAILY RF: 0 glipizide 5 mg Tablet 5 mg PO BID RF: 0 Eliquis 2.5 mg PO BID RF: 0 Prolia See Rx Instructions .ROUTE .COMPLEX RF: 0 albuterol sulfate 2.5 mg inhalation PRN PRN (Reason: Shortness Of Breath Or Wheezing) RF: 0 Discontinued diclofenac sodium 75 mg tablet,delayed release (DR/EC) 75 mg PO BID RF: 0 Discharge Orders: Discharge Order (Routine); Ordered 05/05/19 Ordered By: Kenya Carl Other Ambulatory Orders: DME: Oxygen (Order) Location: None Selected Ordered By: Kenya Carl Referrals: Timi Rubi MD [Physician] - 2 weeks (Call the office and make an appointment to be seen in 2 weeks.) Edmond Bassett MD [Physician] - 2 weeks (Call the office and make a appointment to be seen in 2 weeks.) Discharge Diet: Usual diet Discharge Activity: Resume usual activity Patient Instructions: Bronchitis (Acute) - Adult, Ipratropium (By breathing), Fluticasone/Salmeterol (By breathing), Chronic Obstructive Pulmonary Disease (DC), COPD Stoplight Discharge Attestations Time Spent in Discharge Care*: greater than 30 min Quality Metrics Clinical Quality Measures During this hospital stay, did patient experience: None Coding Level of Care Code Acute Manager Installation for [employer] Fwd Diagnoses COPD exacerbation J44.1 Bronchitis J40
--- NOTE | 2019-05-05 17:57 | PC.RESP ---
Patient given information for Pulmonary Rehab
[2019-05-10 10:11] LABS: Glucose Point of Care 194 mg/dL (70-110)
--- NOTE | 2019-05-19 15:32 | PC.SOCIAL ---
Call placed to patient to follow up. She did see a SENIOR SPEECH PATHOLOGIST since Dr Landry is out of town. Blood work was done but she has not heard back. Advised to follow up on Wednesday on results. NO further medications prescribed. She is still short of breath but is the same. Has not improved or worsened. No Cough and no fever noted. She was encouraged to do deep breathing exercises. She is wearing O2. She does have her appt made with Dr Rubi on 05/25/2019, Dr Bassett on 05/30/2019 and her eye appt on 05/23/2019 for surgery. No concerns voiced to this nurse and no questions voiced when asked. Updated Dr Carl
== END 2019-05-05 18:13 | disposition home or self-care (01) ==
LOC: ER 23:37 → MEDSURG 05-03 02:44
PROVIDERS: Admitting Provider Internal Medicine; Emergency Provider Emergency Medicine; Family Provider Family Medicine; Visit Provider Student in an Organized Health Care Education/Training Program
DX: J44.1 Chronic obstructive pulmonary disease with (acute) exacerbation (principal); J40 Bronchitis, not specified as acute or chronic; Z99.81 Dependence on supplemental oxygen; Z79.01 Long term (current) use of anticoagulants; I48.91 Unspecified atrial fibrillation; I11.0 Hypertensive heart disease with heart failure; I50.9 Heart failure, unspecified; Z86.73 Personal history of transient ischemic attack (TIA), and cerebral infarction without residual deficits; K21.9 Gastro-esophageal reflux disease without esophagitis; E11.42 Type 2 diabetes mellitus with diabetic polyneuropathy; E11.22 Type 2 diabetes mellitus with diabetic chronic kidney disease; I13.0 Hypertensive heart and chronic kidney disease with heart failure and stage 1 through stage 4 chronic kidney disease, or unspecified chronic kidney disease; N18.3 Chronic kidney disease, stage 3 (moderate); Z82.49 Family history of ischemic heart disease and other diseases of the circulatory system
CPT/HCPCS: 12345; 36415; 36416; 36600; 70490; 71045; 71250; 80048; 80053; 82803; 82962; 83036; 83735; 83880; 84443; 84484; 85025; 85610; 87804; 93005; 94640; 96372; 96374; 96375; 96376; 99283; 99291; G0378; J1815; J2060; J2405; J2930; J7030; J7512; J7614; J7644; Q0144

== ENCOUNTER 2019-06-19 13:29 | Outpatient (CLI) | payer MEDICARE, OTHER, SELFPAY ==
--- NOTE | 2019-06-19 14:46 | PFTS_ITS ---
Date of Study:06/19/2019 Date of Dictation: MECHANICS: Forced vital capacity (FVC) is reduced. Forced expiratory volume in one second (FEV1) is reduced. FEV1/FVC is reduced. FLOW VOLUME LOOP: Reduced flow at all lung volumes with significant scooping. LUNG VOLUMES: Total lung capacity and residual volume are not measured. DIFFUSING CAPACITY FOR CARBON MONOXIDE: Moderately reduced. INTERPRETATION: The pulmonary function tests are consistent with moderate obstruction. A component of restriction cannot be ruled out as lung volumes are not measured. There is no significant postbronchodilator response. Gas exchange (DLCO) is moderately reduced. MTDD
== END 2019-06-19 13:30 | disposition home or self-care (01) ==
LOC: RT 13:34
PROVIDERS: Family Provider Family Medicine; PCP Family Medicine; Visit Provider Internal Medicine Critical Care Medicine
DX: R06.02 Shortness of breath (principal)
CPT/HCPCS: 94060; 94729; J7611

== ENCOUNTER → 2019-11-14 10:30 | Outpatient (BNVA) | payer MEDICARE, OTHER, SELFPAY | PROVIDERS: Family Provider Family Medicine; Visit Provider Internal Medicine Rheumatology | DX: M81.0 Age-related osteoporosis without current pathological fracture (principal); Z79.899 Other long term (current) drug therapy; M47.816 Spondylosis without myelopathy or radiculopathy, lumbar region; G89.29 Other chronic pain; E11.22 Type 2 diabetes mellitus with diabetic chronic kidney disease; N18.3 Chronic kidney disease, stage 3 (moderate); J44.9 Chronic obstructive pulmonary disease, unspecified; Z87.891 Personal history of nicotine dependence; Z79.84 Long term (current) use of oral hypoglycemic drugs | CPT/HCPCS: 36415; 82310; 82565; 83735; 86235; 99203 ==

== ENCOUNTER 2019-11-22 10:23 | Outpatient (CLI) | payer MEDICARE, OTHER, SELFPAY ==
[2019-11-22 10:51] VITALS: BP 120/68; PULSE 91; RESP 16; TEMP 36.6; O2SAT 98
[2019-11-22] MEDS: denosumab 60 mg SDV (10:51)
[2019-11-22 10:53] VITALS: BMI 30.1
[2019-11-22 11:40] VITALS: BP 130/70; PULSE 88; RESP 16; TEMP 36.8; O2SAT 98
== END 2019-11-22 10:24 | disposition home or self-care (01) ==
LOC: RHEOACUTE 10:23
PROVIDERS: Family Provider Family Medicine; Visit Provider Internal Medicine Rheumatology
DX: M81.0 Age-related osteoporosis without current pathological fracture (principal)
CPT/HCPCS: 96372; J0897

== ENCOUNTER → 2019-11-24 08:51 | Outpatient (BNVA) | payer MEDICARE, OTHER, SELFPAY | PROVIDERS: Family Provider Family Medicine; PCP Family Medicine; Visit Provider Anesthesiology Pain Medicine | DX: M54.16 Radiculopathy, lumbar region (principal); M47.816 Spondylosis without myelopathy or radiculopathy, lumbar region; M48.061 Spinal stenosis, lumbar region without neurogenic claudication; M47.819 Spondylosis without myelopathy or radiculopathy, site unspecified; M54.9 Dorsalgia, unspecified; M50.90 Cervical disc disorder, unspecified, unspecified cervical region; M47.812 Spondylosis without myelopathy or radiculopathy, cervical region; M81.0 Age-related osteoporosis without current pathological fracture; G62.9 Polyneuropathy, unspecified | CPT/HCPCS: 99205 ==

== ENCOUNTER 2019-11-30 06:49 | Outpatient (CLI) | payer MEDICARE, OTHER, SELFPAY ==
--- NOTE | 2019-11-30 07:15 | MR_ITS ---
WS: [id number] MRI LUMBAR SPINE NONCONTRAST TECHNIQUE: Sagittal T1, T2 and STIR imaging. Axial T1 and T2 imaging. CLINICAL INFORMATION: M54.16 Radiculopathy, lumbar region COMPARISON: MRI 4 FINDINGS: Mild lumbar curve. No acute compression. No high-grade central canal stenosis. Chronic compression T1 2, L1, and L2. Mild chronic compression superior endplates at L3-L5. Biconcave compression at L1 with loss of approximately 50% vertebral body height. T12-L1: Mild disc osteophytic ridging. Mild central canal stenosis. Mild facet arthropathy. Narrowing of the subarticular recess bilaterally. L1-L2: Mild annular bulging. Narrowing of the subarticular recess bilaterally. Mild right foraminal n arrowing. L2-L3: Mild disc bulging with osteophytic ridging. Moderate central canal stenosis. Impingement trave rsing L3 nerve roots bilaterally. Moderate facet arthropathy. Mild right and no significant left fora alison narrowing. L3-L4: Mild disc bulging with osteophytic ridging. Moderate to severe central canal stenosis impinges the traversing L4 nerve roots bilaterally. Mild facet arthropathy. Moderate bilateral foraminal narr owing right greater than left. L4-L5: Mild disc bulging with osteophytic ridging. Impingement traversing L5 nerve roots bilaterally. Moderate facet arthropathy. Moderate left and mild right foraminal narrowing. Moderate facet arthrop athy. L5-S1: Mild disc bulging with osteophytic ridging. Slight impingement on the traversing right greater than left S1 nerve root. Mild right and no significant left foraminal narrowing. Mild compression superior endplate L2 has progressed since 2016 but has a chronic appearance. Remaini ng compression deformities are stable. Central canal stenosis at L2-3 and L3-4 appears relatively sta ble since 2016. Bilateral renal cysts. Partially visualized large right renal cyst extending off the [id number]. MR/MR lumbar spine wo con* [id number] IMPRESSION: 1. Mild lumbar curve. No acute compression. Chronic compression deformities at T12 and L1-L5 described above worse at L1. 2. Moderate central canal stenosis L2-3 and moderate to severe central canal s tenosis L3-4 due to disc bulging with facet arthropathy and ligamentum flavum h ypertrophy. 3. Mild central canal stenosis L4-5 with impingement traversing L5 nerve roots bilaterally. 4. Disc bulging L5-S1 impinges the traversing right S1 nerve root. 5. Mild central canal stenosis T12-L1. 6. Multilevel mild to moderate foraminal narrowing worse at bilateral L3-4, bi lateral L4-5 worse in the left, and right L5-S1. 7. Moderate facet arthropathy L3-L5. 8. Partially evaluated bilateral renal cysts. Partially seen large right renal cyst extending off the [id number]. This can be followed up with contrast-en hanced CT abdomen pelvis or ultrasound. These are seen on the prior CT abdomen pelvis 3 10,015.
--- NOTE | 2019-11-30 08:22 | XR_ITS ---
WS: [id number] Thoracic spine, 3 views, 11/30/2019 Clinical Data: pain Comparison: None. Findings: There is a compression fracture of the anterior and central portion of the T12 vertebral body involvi ng approximately 25% of the vertebral body height. There is a compression fracture of the L1 vertebra l body and involving more than 50% of the anterior and central vertebral body height. Diffuse osteopo rosis is seen. The disc heights are normal. The paravertebral regions show no abnormalities. Splenic artery calcifications are seen. XR/XR thoracic spine 3V* [id number] Impression: 1. Diffuse osteoporosis. 2. Old compression fracture of T12 and L1.
--- NOTE | 2019-11-30 08:22 | XR_ITS ---
WS: [id number] Lumbar spine, 5 views, 11/30/2019 Clinical Data: pain Comparison: Lumbar spine, 11/24/2017. Findings: There are compression fractures involving the lumbar vertebral bodies L1-L3. There is a compression f racture of the T12 vertebral body. The most severe compression is at L1 with loss of greater than 75% of the central vertebral body height. The remainder of the lumbar vertebral bodies show loss of 25-5 0% of the central vertebral body height with no significant change. The T12 compression fracture show s 25% loss of anterior and central vertebral body height. Diffuse osteoporosis is present. There is d egenerative disc disease at the disc levels L2-L3 through L5-S1. There is anterior osteoarthritic spu rring. No spondylolysis or spondylolisthesis is seen. There is vascular calcification of the abdominal aorta but no aneurysm is noted. XR/XR lumbar spine min 4V [id number] Impression: 1. Multiple compression fractures from T12 through L3 with little change. 2. Osteoporosis. 3. Osteoarthritis. 4. Degenerative disc disease from L2-L3 through L5-S1.
== END 2019-11-30 06:50 | disposition home or self-care (01) ==
LOC: RADSHAW 06:53
PROVIDERS: PCP Family Medicine; Visit Provider Anesthesiology Pain Medicine
DX: M54.16 Radiculopathy, lumbar region (principal); M48.061 Spinal stenosis, lumbar region without neurogenic claudication; M51.27 Other intervertebral disc displacement, lumbosacral region; M48.05 Spinal stenosis, thoracolumbar region; Q61.02 Congenital multiple renal cysts; M47.816 Spondylosis without myelopathy or radiculopathy, lumbar region; S32.010A Wedge compression fracture of first lumbar vertebra, initial encounter for closed fracture; S32.020A Wedge compression fracture of second lumbar vertebra, initial encounter for closed fracture; S32.030A Wedge compression fracture of third lumbar vertebra, initial encounter for closed fracture; S22.080A Wedge compression fracture of T11-T12 vertebra, initial encounter for closed fracture; M81.0 Age-related osteoporosis without current pathological fracture; M47.819 Spondylosis without myelopathy or radiculopathy, site unspecified; M51.36 Other intervertebral disc degeneration, lumbar region; M51.37 Other intervertebral disc degeneration, lumbosacral region; X58.XXXA Exposure to other specified factors, initial encounter
CPT/HCPCS: 72072; 72114; 72148

== ENCOUNTER → 2019-12-07 10:58 | Outpatient (BNVA) | payer MEDICARE, OTHER, SELFPAY | PROVIDERS: Family Provider Family Medicine; PCP Family Medicine; Visit Provider Anesthesiology Pain Medicine | DX: M47.816 Spondylosis without myelopathy or radiculopathy, lumbar region (principal); M48.061 Spinal stenosis, lumbar region without neurogenic claudication; M50.90 Cervical disc disorder, unspecified, unspecified cervical region; M47.812 Spondylosis without myelopathy or radiculopathy, cervical region; M54.9 Dorsalgia, unspecified; M81.0 Age-related osteoporosis without current pathological fracture; E11.22 Type 2 diabetes mellitus with diabetic chronic kidney disease; N18.3 Chronic kidney disease, stage 3 (moderate); I50.9 Heart failure, unspecified; J44.1 Chronic obstructive pulmonary disease with (acute) exacerbation; E11.9 Type 2 diabetes mellitus without complications; G62.9 Polyneuropathy, unspecified | CPT/HCPCS: 99213 ==

== ENCOUNTER 2020-05-27 13:12 | Outpatient (CLI) | payer MEDICARE, OTHER, SELFPAY ==
[2020-05-27 14:36] VITALS: BP 106/71; PULSE 76; RESP 16; TEMP 36.5; O2SAT 90
[2020-05-27] MEDS: denosumab 60 mg SDV SUBCUT (14:36)
== END 2020-05-27 13:13 | disposition home or self-care (01) ==
LOC: ONCMED 13:14
PROVIDERS: Family Provider Family Medicine; PCP Family Medicine; Visit Provider Internal Medicine Rheumatology
DX: M81.0 Age-related osteoporosis without current pathological fracture (principal)
CPT/HCPCS: 96372; J0897

== ENCOUNTER 2020-09-10 15:36 | Outpatient (CLI) | payer MEDICARE, OTHER, SELFPAY ==
--- NOTE | 2020-09-10 | XR_ITS ---
WS: [id number] Lumbar spine, 3 views, 09/10/2020 Clinical Data: OSTEOPOROSIS, BACK PAIN, LUMBAR WITH RADICULOPATHY Comparison: Lumbar spine, 11/30/2019. Findings: The compression fractures from T12 through L1 remain the same. The most severe compression fracture i s at L1 with loss of more than 75% central vertebral body height. The superior cortical margins of L4 and L5 also show slight compression. Diffuse osteoarthritis and osteoporosis are present. Multilevel degenerative disc disease from T2 through L5 is present. The transverse processes and SI joints are unremarkable. There are vascular calcifications with no an eurysm of the abdominal aorta. XR/XR lumbar spine 2-3V* [id number] Impression: 1. No change in multiple lumbar compression fractures. 2. Multilevel degenerative arthritis and degenerative disc disease unchanged. 3. Diffuse osteoporosis.
== END 2020-09-10 15:37 | disposition home or self-care (01) ==
LOC: RAD 15:44
PROVIDERS: PCP Family Medicine; Visit Provider Family Medicine
DX: M81.0 Age-related osteoporosis without current pathological fracture (principal); M54.16 Radiculopathy, lumbar region; M47.816 Spondylosis without myelopathy or radiculopathy, lumbar region; M51.36 Other intervertebral disc degeneration, lumbar region
CPT/HCPCS: 72100

== ENCOUNTER 2020-11-27 12:56 | Outpatient (CLI) | payer MEDICARE, OTHER, SELFPAY ==
[2020-11-27 13:09] VITALS: BP 107/51; PULSE 73; RESP 18; TEMP 36.6; O2SAT 93
[2020-11-27] MEDS: denosumab 60 mg SDV SUBCUT (13:24)
[2020-11-27 13:48] VITALS: BP 103/52; PULSE 67; RESP 18; TEMP 36.3; O2SAT 93
== END 2020-11-27 12:57 | disposition home or self-care (01) ==
LOC: ONCMED 12:59
PROVIDERS: PCP Family Medicine; Visit Provider Internal Medicine Rheumatology
DX: M81.0 Age-related osteoporosis without current pathological fracture (principal)
CPT/HCPCS: 96372; J0897

== ENCOUNTER 2020-12-04 13:12 | Outpatient (CLI) | payer MEDICARE, OTHER, SELFPAY ==
--- NOTE | 2020-12-04 13:00 | XR_ITS ---
WS: [id number] KUB, AP view, 12/04/2020 Clinical Data: RIGHT RENAL STONE Comparison: KUB, 06/08/2016. Findings: There are numerous calcifications overlying the right kidney. Bowel gas obscures detail over the left kidney. There are vascular calcifications in the left upper quadrant. There is osteoarthritis of the lumbar vertebral bodies. There is a large amount of fecal material throughout the colon. XR/XR KUB [id number] Impression: No change in right renal calculi.
== END 2020-12-04 13:13 | disposition home or self-care (01) ==
LOC: RAD 13:19
PROVIDERS: PCP Family Medicine; Visit Provider Urology
DX: N20.0 Calculus of kidney (principal)
CPT/HCPCS: 74018; 81003

== ENCOUNTER 2021-01-06 12:14 | Outpatient (CLI) | payer MEDICARE, OTHER, SELFPAY ==
[2021-01-06 13:59] LABS: Albumin Level 3.9 g/dL (3.5-5.2); Calcium 9.9 mg/dL (8.5-10.5)
[2021-01-06 14:12] LABS: 25 Hydroxy Vitamin D 20 ng/mL (30-100)
== END 2021-01-06 12:15 | disposition home or self-care (01) ==
LOC: ONCMED 12:17
PROVIDERS: PCP Family Medicine; Referring Provider Internal Medicine Rheumatology; Visit Provider Internal Medicine Rheumatology
DX: M81.0 Age-related osteoporosis without current pathological fracture (principal)
CPT/HCPCS: 36415; 82040; 82306; 82310; 82565

== ENCOUNTER 2021-06-03 12:59 | Outpatient (CLI) | payer MEDICARE, OTHER, SELFPAY ==
[2021-06-03 14:01] LABS: Albumin Level 4.4 g/dL (3.5-5.2); Calcium 11.3 mg/dL (8.5-10.5)
[2021-06-03 14:28] VITALS: BP 121/66; PULSE 83; RESP 18; TEMP 36.6; O2SAT 95
[2021-06-03 14:34] LABS: 25 Hydroxy Vitamin D > 100 ng/mL (30-100)
[2021-06-03] MEDS: denosumab 60 mg SDV SUBCUT (14:35)
== END 2021-06-03 13:00 | disposition home or self-care (01) ==
LOC: ONCMED 13:00
PROVIDERS: PCP Family Medicine; Referring Provider Internal Medicine Rheumatology; Visit Provider Internal Medicine Rheumatology
DX: M81.0 Age-related osteoporosis without current pathological fracture (principal); Z87.891 Personal history of nicotine dependence
CPT/HCPCS: 36415; 82040; 82306; 82310; 82565; 96372; J0897

== ENCOUNTER → 2021-07-14 09:20 | Outpatient (BNVA) | payer MEDICARE, OTHER, SELFPAY | PROVIDERS: PCP Family Medicine; Visit Provider Internal Medicine Rheumatology | DX: M81.0 Age-related osteoporosis without current pathological fracture (principal); E83.52 Hypercalcemia; M47.899 Other spondylosis, site unspecified; N18.9 Chronic kidney disease, unspecified; Z79.1 Long term (current) use of non-steroidal anti-inflammatories (NSAID) | CPT/HCPCS: 36415; 82040; 82310; 83970; 99214 ==

== ENCOUNTER 2021-07-17 13:56 | Outpatient (CLI) | payer MEDICARE, OTHER, SELFPAY ==
--- NOTE | 2021-07-17 14:07 | USCV_ITS ---
Janet Cooper Age: 81 Gender: F : 1940 Exam Date: 07/17/2021 14:16 Ordering Phys: Austen Landry DO Technologist: Exam Location: [facility] [place] Indication: chf BP: 135 / 65 HR: 96 Rhythm: Sinus Technical Quality: Good MEASUREMENTS (Male / Female) Normal Values 2D ECHO LV Diastolic Diameter PLAX 3.3 cm 4.2 - 5.9 / 3.9 - 5.3 cm LV Systolic Diameter PLAX 2.6 cm IVS Diastolic Thickness 1.3 cm 0.6 - 1.0 / 0.6 - 0.9 cm IVS Systolic Thickness 1.8 cm LVPW Diastolic Thickness 1.1 cm 0.6 - 1.0 / 0.6 - 0.9 cm LVPW Systolic Thickness 1.8 cm LVOT Diameter 2.1 cm LV Ejection Fraction 2D Teich 44.7 % LV Ejection Fraction MOD 2C 71.5 % LV Ejection Fraction 2C AL 72.0 % LA Diameter 3.8 cm Aorta at Sinotubular Diameter 2.5 cm M-MODE Aortic Annulus Diameter 3.5 cm LA Ao Ratio MM 1.2 MV E Point Septal Separation 1.1 cm DOPPLER AV Peak Velocity 94.0 cm/s LVOT Peak Velocity 74.0 cm/s AV Area Cont Eq vti 2.5 cm squared AV Area Cont Eq pk 2.6 cm squared MV Area PHT 5.0 cm squared Mitral E to A Ratio 2.0 MV E' Velocity 49.0 cm/s Mitral E to MV E' Ratio 13.3 Mitral E to LV E' Lateral Ratio 13.5 Mitral E to LV E' Septal Ratio 13.1 TR Peak Velocity 199.7 cm/s TR Peak Gradient 15.9 mmHg PV Peak Velocity 87.0 cm/s FINDINGS Left Ventricle Moderate left ventricular hypertrophy. Normal left ventricular size and systolic function, EF 71 %. No regional wall motion abnormalities. Right Ventricle The right ventricle is normal in size and function. Right Atrium The right atrium is normal in size. Left Atrium The left atrium is normal in size. Mitral Valve Thickened mitral valve. Trace mitral valve regurgitation. Aortic Valve Thickened aortic valve. Tricuspid Valve Trace to mild tricuspid valve regurgitation. Pulmonic Valve No gross abnormalities noted Pericardium Normal pericardium without effusion. Aorta Normal ascending aorta dimension. CONCLUSIONS Normal left ventricular size and systolic function, EF 71 %. No regional wall motion abnormalities. Moderate left ventricular hypertrophy. Thickened mitral valve. Trace mitral valve regurgitation. Thickened aortic valve. Trace to mild tricuspid valve regurgitation. There is no pericardial effusion. There are no intracardiac masses. No previous study is available for comparison. Dr Marj Goff MD [facility] (Electronically Signed) Final Date: 18 July 2021 00:05 S
== END 2021-07-17 13:57 | disposition home or self-care (01) ==
LOC: RAD 13:58
PROVIDERS: PCP Family Medicine; Visit Provider Family Medicine
DX: I95.9 Hypotension, unspecified (principal); I48.91 Unspecified atrial fibrillation; I50.9 Heart failure, unspecified; I08.3 Combined rheumatic disorders of mitral, aortic and tricuspid valves
CPT/HCPCS: 93306

== ENCOUNTER → 2021-08-06 13:33 | Outpatient (BNVA) | payer MEDICARE, OTHER, SELFPAY | PROVIDERS: PCP Family Medicine; Referring Provider Internal Medicine Rheumatology; Visit Provider Internal Medicine | DX: M81.0 Age-related osteoporosis without current pathological fracture (principal); E21.0 Primary hyperparathyroidism; E67.3 Hypervitaminosis D | CPT/HCPCS: 36415; 80053; 82306; 82310; 83970; 99204 ==

== ENCOUNTER 2021-09-03 08:26 | Outpatient (CLI) | payer MEDICARE, OTHER, SELFPAY ==
--- NOTE | 2021-09-03 09:00 | NM_ITS ---
WS: [id number] NUCLEAR MEDICINE PARATHYROID SCINTIGRAPHY INDICATION: Hypercalcemia TECHNIQUE: 21.1 mCi technetium 99m sestamibi. Initial and delayed 2 hour AP and oblique imaging was o btained. FINDINGS: LEFT lower lobe thyroid nodule seen on the prior studies. Otherwise relatively normal appea ring early thyroid parenchymal radiotracer uptake. Images obtained with and without suprasternal notc h marker. Normal salivary gland uptake. Delayed imaging demonstrates normal radiotracer washout of the thyroid parenchyma. No suspicious resi dual foci of activity to indicate parathyroid adenoma. NM/NM parathyroid [id number] IMPRESSION: 1. No evidence of parathyroid adenoma.
== END 2021-09-03 08:27 | disposition home or self-care (01) ==
LOC: RAD 08:30
PROVIDERS: PCP Family Medicine; Visit Provider Internal Medicine
DX: E21.0 Primary hyperparathyroidism (principal); E83.52 Hypercalcemia
CPT/HCPCS: 78070; A9500

== ENCOUNTER → 2021-09-30 11:28 | Outpatient (BNVA) | payer MEDICARE, OTHER, SELFPAY | PROVIDERS: PCP Family Medicine; Visit Provider Family Medicine | DX: E11.8 Type 2 diabetes mellitus with unspecified complications (principal); J44.9 Chronic obstructive pulmonary disease, unspecified; G89.4 Chronic pain syndrome; I48.91 Unspecified atrial fibrillation; Z78.9 Other specified health status; R53.81 Other malaise; D51.9 Vitamin B12 deficiency anemia, unspecified; N19 Unspecified kidney failure; I50.9 Heart failure, unspecified | CPT/HCPCS: 80053; 82607; 83036; 84443; 85025 ==

== ENCOUNTER → 2021-10-16 14:49 | Outpatient (BNVA) | payer MEDICARE, OTHER, SELFPAY | PROVIDERS: PCP Family Medicine; Visit Provider Internal Medicine | DX: E21.0 Primary hyperparathyroidism (principal); E67.3 Hypervitaminosis D; M81.0 Age-related osteoporosis without current pathological fracture | CPT/HCPCS: 36415; 82310; 83970; 99214 ==

== ENCOUNTER → 2021-11-11 14:56 | Outpatient (BNVA) | payer MEDICARE, OTHER, SELFPAY | PROVIDERS: PCP Family Medicine; Visit Provider Internal Medicine Cardiovascular Disease | DX: I48.0 Paroxysmal atrial fibrillation (principal); I13.0 Hypertensive heart and chronic kidney disease with heart failure and stage 1 through stage 4 chronic kidney disease, or unspecified chronic kidney disease; E11.22 Type 2 diabetes mellitus with diabetic chronic kidney disease; N18.30 Chronic kidney disease, stage 3 unspecified; I50.22 Chronic systolic (congestive) heart failure; Z79.84 Long term (current) use of oral hypoglycemic drugs | CPT/HCPCS: 99214 ==

== ENCOUNTER → 2021-11-24 10:15 | Outpatient (BNVA) | payer MEDICARE, OTHER, SELFPAY | PROVIDERS: PCP Family Medicine; Visit Provider Anesthesiology Pain Medicine | DX: M54.6 Pain in thoracic spine (principal); F17.210 Nicotine dependence, cigarettes, uncomplicated; Z79.891 Long term (current) use of opiate analgesic; M48.061 Spinal stenosis, lumbar region without neurogenic claudication; G62.9 Polyneuropathy, unspecified; M47.816 Spondylosis without myelopathy or radiculopathy, lumbar region | CPT/HCPCS: 99214 ==

== ENCOUNTER 2021-12-01 15:01 | Outpatient (CLI) | payer MEDICARE, OTHER, SELFPAY ==
--- NOTE | 2021-12-01 15:30 | XR_ITS ---
WS: [id number] DEXA (DUAL ENERGY X-RAY ABSORPTIOMETRY) Bone mineral density was performed using a [employer] machine. HISTORY: M81.0 - Age-related osteoporosis without current pathology... COMPARISON: 02/18/2015 Lumbar spine BMD (L1-L3): 1.114 T score: -0.5 Z score: 1.1 Total hip BMD: Left: 0.660 g/cm2. T score: -2.8 Z score: -1.0 Right: 0.687 g/cm2. T score: -2.5 Z score: -0.7 10 year probability of a major osteoporotic fracture is 30.8%. Compared to the prior study from 02/18/2015. Lumbar spine bone mineral density has increased by 23.9%. Bilateral hips bone mineral density has decreased by 17.4%. XR/XR DEXA axial skeleton* [id number] IMPRESSION: OSTEOPOROSIS based upon the WHO classification for females. Significant decrease in bone mineral density within the lumbar spine. The incre ased bone mineral density in the lumbar spine is probably not accurate and more related to bony sclerosis than true increase in bone mineral density.
== END 2021-12-01 15:02 | disposition home or self-care (01) ==
LOC: RAD 15:01
PROVIDERS: PCP Family Medicine; Visit Provider Internal Medicine Rheumatology
DX: M81.0 Age-related osteoporosis without current pathological fracture (principal)
CPT/HCPCS: 77080

== ENCOUNTER 2021-12-09 10:51 | Outpatient (CLI) | payer MEDICARE, OTHER, SELFPAY ==
[2021-12-09 12:23] LABS: Albumin Level 4.2 g/dL (3.5-5.2); Calcium 11.3 mg/dL (8.5-10.5)
[2021-12-09 12:48] VITALS: BP 146/81; PULSE 87; RESP 18; TEMP 36.7; O2SAT 93
[2021-12-09 12:55] LABS: 25 Hydroxy Vitamin D > 100 ng/mL (30-100)
[2021-12-09] MEDS: denosumab 60 mg SDV SUBCUT (12:55)
[2021-12-09 13:02] VITALS: BP 137/85; PULSE 84; RESP 18; TEMP 36.6; O2SAT 94
== END 2021-12-09 10:52 | disposition home or self-care (01) ==
PROVIDERS: PCP Family Medicine; Visit Provider Internal Medicine Rheumatology
DX: M81.0 Age-related osteoporosis without current pathological fracture (principal)
CPT/HCPCS: 36415; 82040; 82306; 82310; 82565; 96372; J0897

== ENCOUNTER → 2021-12-11 12:13 | Outpatient (BNVA) | payer MEDICARE, OTHER, SELFPAY | PROVIDERS: PCP Family Medicine; Visit Provider Anesthesiology Pain Medicine | DX: M47.816 Spondylosis without myelopathy or radiculopathy, lumbar region (principal); F17.210 Nicotine dependence, cigarettes, uncomplicated | CPT/HCPCS: 64493; 64494; 64495; J3490 ==

== ENCOUNTER → 2021-12-24 12:39 | Outpatient (BNVA) | payer MEDICARE, OTHER, SELFPAY | PROVIDERS: PCP Family Medicine; Visit Provider Anesthesiology Pain Medicine | DX: M47.816 Spondylosis without myelopathy or radiculopathy, lumbar region (principal); F17.210 Nicotine dependence, cigarettes, uncomplicated | CPT/HCPCS: 64493; 64494; 64495; J3490 ==

== ENCOUNTER 2022-01-07 11:15 | Outpatient (CLI) | payer MEDICARE, OTHER, SELFPAY ==
[2022-01-07 12:21] LABS: Calcium 10.5 mg/dL (8.5-10.5)
[2022-01-07 12:26] LABS: Parathyroid Hormone 152.1 pg/mL (15-65)
== END 2022-01-07 11:16 | disposition home or self-care (01) ==
LOC: LAB 11:18
PROVIDERS: PCP Family Medicine; Visit Provider Internal Medicine
DX: E21.0 Primary hyperparathyroidism (principal); E83.52 Hypercalcemia; M48.061 Spinal stenosis, lumbar region without neurogenic claudication; M47.816 Spondylosis without myelopathy or radiculopathy, lumbar region; M54.6 Pain in thoracic spine; G62.9 Polyneuropathy, unspecified; F17.210 Nicotine dependence, cigarettes, uncomplicated
CPT/HCPCS: 36415; 82310; 83970; 99214

== ENCOUNTER → 2022-01-21 14:01 | Outpatient (BNVA) | payer MEDICARE, OTHER, SELFPAY | PROVIDERS: PCP Family Medicine; Visit Provider Anesthesiology Pain Medicine | DX: M47.816 Spondylosis without myelopathy or radiculopathy, lumbar region (principal); E11.9 Type 2 diabetes mellitus without complications; Z79.84 Long term (current) use of oral hypoglycemic drugs; F17.210 Nicotine dependence, cigarettes, uncomplicated | CPT/HCPCS: 36416; 64635; 64636; 82962; J1030 ==

== ENCOUNTER → 2022-02-09 12:35 | Outpatient (BNVA) | payer MEDICARE, OTHER, SELFPAY | PROVIDERS: PCP Family Medicine; Visit Provider Anesthesiology Pain Medicine | DX: M47.816 Spondylosis without myelopathy or radiculopathy, lumbar region (principal); E11.9 Type 2 diabetes mellitus without complications; Z79.84 Long term (current) use of oral hypoglycemic drugs; F17.210 Nicotine dependence, cigarettes, uncomplicated | CPT/HCPCS: 36416; 64635; 64636; 82962 ==

== ENCOUNTER → 2022-03-03 14:47 | Outpatient (BNVA) | payer MEDICARE, OTHER, SELFPAY | PROVIDERS: PCP Family Medicine; Visit Provider Anesthesiology Pain Medicine | DX: M48.061 Spinal stenosis, lumbar region without neurogenic claudication (principal); M47.816 Spondylosis without myelopathy or radiculopathy, lumbar region; G62.9 Polyneuropathy, unspecified; M54.6 Pain in thoracic spine; F17.210 Nicotine dependence, cigarettes, uncomplicated | CPT/HCPCS: 99213 ==

== ENCOUNTER → 2022-03-16 13:30 | Outpatient (BNVA) | payer MEDICARE, OTHER, SELFPAY | PROVIDERS: PCP Family Medicine; Visit Provider Internal Medicine | DX: M81.0 Age-related osteoporosis without current pathological fracture (principal); E21.0 Primary hyperparathyroidism | CPT/HCPCS: 99214 ==

== ENCOUNTER → 2022-03-25 15:40 | Outpatient (BNVA) | payer MEDICARE, OTHER, SELFPAY | PROVIDERS: PCP Family Medicine; Visit Provider Family Medicine | DX: R42 Dizziness and giddiness (principal); M47.816 Spondylosis without myelopathy or radiculopathy, lumbar region; E11.22 Type 2 diabetes mellitus with diabetic chronic kidney disease; J44.1 Chronic obstructive pulmonary disease with (acute) exacerbation; I50.22 Chronic systolic (congestive) heart failure; G62.9 Polyneuropathy, unspecified; I48.0 Paroxysmal atrial fibrillation; E21.0 Primary hyperparathyroidism; E83.52 Hypercalcemia | CPT/HCPCS: 80053; 82607; 83036; 84443; 85025 ==

== ENCOUNTER 2022-04-17 14:15 | Outpatient (CLI) | payer MEDICARE, OTHER, SELFPAY ==
--- NOTE | 2022-04-17 14:30 | MR_ITS ---
WS: [id number] MRI BRAIN WITH AND WITHOUT CONTRAST HISTORY: chronic dizziness, continuous COMPARISON: 04/08/2016 TECHNIQUE: Multiplanar imaging performed through the brain with MultiHance 15 ml's IV. Quality of the study is compromised by motion artifact. No acute infarcts are seen. Balderas-white matter differentiation is well preserved. Moderate atrophy and minimal small vessel ischemic disease. No susceptibility artifacts or prior lacunar infarcts. Ventricles and extra-axial spaces are prominent on the basis of atrophy. Clivus and pituitary gland are normal. Visualized posterior fossa and brainstem are also normal. Postcontrast images are negative for masses or vascular malformations. Dural venous sinuses are normal. Paranasal sinuses: Well aerated with no significant disease. Mastoid air cells: Normal. Calvarium and scalp: Normal. MR/MR head wo/w con [id number] IMPRESSION: 1. Study is compromised by motion artifact. 2. No acute infarct or enhancing masses. 3. Moderate atrophy with only minimal small vessel ischemic disease. No prior infarct.
[2022-04-17] MEDS: gadobenate dimeglumine 20 mL vial IV (15:07)
== END 2022-04-17 14:16 | disposition home or self-care (01) ==
LOC: RAD 14:19
PROVIDERS: PCP Family Medicine; Visit Provider Family Medicine
DX: R42 Dizziness and giddiness (principal); E11.22 Type 2 diabetes mellitus with diabetic chronic kidney disease; E11.42 Type 2 diabetes mellitus with diabetic polyneuropathy; N18.30 Chronic kidney disease, stage 3 unspecified; I50.22 Chronic systolic (congestive) heart failure; J44.1 Chronic obstructive pulmonary disease with (acute) exacerbation; M47.816 Spondylosis without myelopathy or radiculopathy, lumbar region; I67.82 Cerebral ischemia
CPT/HCPCS: 70553; A9577

== ENCOUNTER 2022-05-27 15:02 | Outpatient (CLI) | payer MEDICARE, OTHER, SELFPAY ==
[2022-05-27 16:47] LABS: Calcium 11.2 mg/dL (8.5-10.5); Parathyroid Hormone 116.7 pg/mL (15-65)
== END 2022-05-27 15:03 | disposition home or self-care (01) ==
PROVIDERS: PCP Family Medicine; Visit Provider Internal Medicine
DX: E21.0 Primary hyperparathyroidism (principal)
CPT/HCPCS: 82310; 83970

== ENCOUNTER 2022-06-10 11:52 | Oncology outpatient (recurring) (ONCR) | payer MEDICARE, OTHER, SELFPAY ==
[2022-06-10 13:21] LABS: Calcium 11.6 mg/dL (8.5-10.5)
[2022-06-10] MEDS: denosumab 60 mg SDV SUBCUT (13:34)
[2022-06-10 13:36] LABS: 25 Hydroxy Vitamin D 11 ng/mL (30-100)
== END 2022-07-03 23:59 | disposition home or self-care (01) ==
PROVIDERS: PCP Family Medicine; Visit Provider Internal Medicine Rheumatology
DX: M81.0 Age-related osteoporosis without current pathological fracture (principal)
CPT/HCPCS: 82040; 82306; 82310; 82565; 96372; J0897

== ENCOUNTER 2022-07-09 13:11 | Outpatient (CLI) | payer MEDICARE, OTHER, SELFPAY ==
[2022-07-09 14:15] LABS: Calcium 9.4 mg/dL (8.5-10.5)
[2022-07-09 14:19] LABS: Anion Gap 11.6 (5-19); Blood Urea Nitrogen 17 mg/dL (8-23); Calcium 9.5 mg/dL (8.5-10.5); Carbon Dioxide 28 mmol/L (22-29); Chloride 107 mmol/L (98-107); Glucose 149 mg/dL (65-115); Osmolality Calculated 298 mOsm/kg (285-295); Phosphorus 3.1 mg/dL (2.5-4.5); Potassium 4.6 mmol/L (3.5-5.1); Sodium 142 mmol/L (136-145)
[2022-07-09 14:22] LABS: Parathyroid Hormone 296.3 pg/mL (15-65)
[2022-07-09 14:35] LABS: 25 Hydroxy Vitamin D 8 ng/mL (30-100)
== END 2022-07-09 13:12 | disposition home or self-care (01) ==
LOC: LAB 13:15
PROVIDERS: PCP Family Medicine; Referring Provider Internal Medicine; Visit Provider Internal Medicine Rheumatology
DX: M81.0 Age-related osteoporosis without current pathological fracture (principal); E21.0 Primary hyperparathyroidism
CPT/HCPCS: 36415; 80048; 82306; 82310; 83970; 84100

== ENCOUNTER → 2022-07-13 12:19 | Outpatient (BNVA) | payer MEDICARE, OTHER, SELFPAY | PROVIDERS: PCP Family Medicine; Visit Provider Anesthesiology Pain Medicine | DX: M54.16 Radiculopathy, lumbar region (principal); M81.0 Age-related osteoporosis without current pathological fracture; M47.816 Spondylosis without myelopathy or radiculopathy, lumbar region; G62.9 Polyneuropathy, unspecified; M48.061 Spinal stenosis, lumbar region without neurogenic claudication | CPT/HCPCS: 72070; 72110; 99214 ==

== ENCOUNTER → 2022-07-21 14:17 | Outpatient (BNVA) | payer MEDICARE, OTHER, SELFPAY | PROVIDERS: PCP Family Medicine; Visit Provider Internal Medicine Rheumatology | DX: M81.0 Age-related osteoporosis without current pathological fracture (principal); E83.52 Hypercalcemia; R79.89 Other specified abnormal findings of blood chemistry | CPT/HCPCS: 99214 ==

== ENCOUNTER → 2022-09-08 10:54 | Outpatient (BNVA) | payer MEDICARE, OTHER, SELFPAY | PROVIDERS: PCP Family Medicine; Visit Provider Anesthesiology Pain Medicine | DX: M48.061 Spinal stenosis, lumbar region without neurogenic claudication (principal); M47.816 Spondylosis without myelopathy or radiculopathy, lumbar region; G62.9 Polyneuropathy, unspecified | CPT/HCPCS: 99214 ==

== ENCOUNTER 2022-09-17 16:50 | Outpatient (CLI) | payer MEDICARE, OTHER, SELFPAY ==
[2022-09-17 18:19] LABS: 25 Hydroxy Vitamin D 43 ng/mL (30-100)
== END 2022-09-17 16:51 | disposition home or self-care (01) ==
LOC: LAB 16:53
PROVIDERS: PCP Family Medicine; Visit Provider Internal Medicine
DX: M81.0 Age-related osteoporosis without current pathological fracture (principal); R79.89 Other specified abnormal findings of blood chemistry; E21.3 Hyperparathyroidism, unspecified
CPT/HCPCS: 36415; 82306

== ENCOUNTER → 2022-09-22 15:49 | Outpatient (BNVA) | payer MEDICARE, OTHER, SELFPAY | PROVIDERS: PCP Family Medicine; Visit Provider Internal Medicine | DX: E11.9 Type 2 diabetes mellitus without complications (principal); M81.0 Age-related osteoporosis without current pathological fracture; E21.0 Primary hyperparathyroidism; Z79.84 Long term (current) use of oral hypoglycemic drugs | CPT/HCPCS: 99213 ==

== ENCOUNTER → 2022-09-29 16:21 | Outpatient (BNVA) | payer MEDICARE, OTHER, SELFPAY | PROVIDERS: PCP Family Medicine; Visit Provider Family Medicine | DX: E11.9 Type 2 diabetes mellitus without complications (principal); R42 Dizziness and giddiness; M81.0 Age-related osteoporosis without current pathological fracture; I48.91 Unspecified atrial fibrillation; E21.3 Hyperparathyroidism, unspecified; E03.9 Hypothyroidism, unspecified; E11.22 Type 2 diabetes mellitus with diabetic chronic kidney disease; E55.9 Vitamin D deficiency, unspecified; E21.0 Primary hyperparathyroidism; J44.9 Chronic obstructive pulmonary disease, unspecified; I48.0 Paroxysmal atrial fibrillation; J44.1 Chronic obstructive pulmonary disease with (acute) exacerbation | CPT/HCPCS: 71046; 80053; 82542; 82652; 83036; 84443; 85025 ==

== ENCOUNTER 2022-11-10 14:47 | Oncology outpatient (recurring) (ONCR) | payer MEDICARE, OTHER, SELFPAY ==
[2022-11-10 15:17] VITALS: BP 120/80; PULSE 100; RESP 17; TEMP 36.8; O2SAT 98
[2022-11-10 15:40] VITALS: BP 120/80; PULSE 100; RESP 17; TEMP 36.8
[2022-11-10] MEDS: romosozumab-aqqg 210 mg/2.34 mL syr SUBCUT (15:40)
[2022-11-10 16:18] LABS: Calcium 10.7 mg/dL (8.5-10.5)
[2022-11-10 16:25] LABS: Parathyroid Hormone 88.7 pg/mL (15-65)
[2022-11-10 16:33] LABS: 25 Hydroxy Vitamin D 31 ng/mL (30-100)
== END 2022-12-03 23:59 | disposition home or self-care (01) ==
PROVIDERS: Internal Medicine; PCP Family Medicine; Visit Provider Internal Medicine Rheumatology
DX: M81.0 Age-related osteoporosis without current pathological fracture (principal); E21.0 Primary hyperparathyroidism
CPT/HCPCS: 36415; 82040; 82306; 82310; 82565; 83970; 96372; J3111

== ENCOUNTER → 2022-12-09 10:13 | Outpatient (BNVA) | payer MEDICARE, OTHER, SELFPAY | PROVIDERS: PCP Family Medicine; Visit Provider Anesthesiology Pain Medicine | DX: M48.061 Spinal stenosis, lumbar region without neurogenic claudication; G62.9 Polyneuropathy, unspecified; M47.816 Spondylosis without myelopathy or radiculopathy, lumbar region | CPT/HCPCS: 99214 ==

== ENCOUNTER 2022-12-10 13:17 | Oncology outpatient (recurring) (ONCR) | payer MEDICARE, OTHER, SELFPAY ==
[2022-12-10 13:41] VITALS: BP 120/75; PULSE 79; RESP 18; TEMP 36.7; O2SAT 92
[2022-12-10 14:34] LABS: 25 Hydroxy Vitamin D 29 ng/mL (30-100)
[2022-12-10 15:05] LABS: Albumin Level 3.9 g/dL (3.5-5.2); Calcium 10.5 mg/dL (8.5-10.5)
[2022-12-10] MEDS: romosozumab-aqqg 210 mg/2.34 mL syr SUBCUT (15:52)
[2022-12-10 16:54] VITALS: BP 122/68; PULSE 75; RESP 16; TEMP 36.4; O2SAT 95
== END 2023-01-02 23:59 | disposition home or self-care (01) ==
PROVIDERS: PCP Family Medicine; Visit Provider Internal Medicine Rheumatology
DX: M81.0 Age-related osteoporosis without current pathological fracture (principal); Z53.9 Procedure and treatment not carried out, unspecified reason
CPT/HCPCS: 36415; 82040; 82306; 82310; 82565; 96372; J3111

== ENCOUNTER 2023-01-07 13:38 | Oncology outpatient (recurring) (ONCR) | payer MEDICARE, OTHER, SELFPAY ==
[2023-01-07] MEDS: romosozumab-aqqg 210 mg/2.34 mL syr SUBCUT (15:33)
[2023-01-07 15:40] VITALS: BP 121/58; PULSE 61; RESP 17; TEMP 36.3; O2SAT 97
[2023-01-07 15:50] LABS: Albumin Level 3.9 g/dL (3.5-5.2); Calcium 11.1 mg/dL (8.5-10.5)
[2023-01-07 16:05] LABS: 25 Hydroxy Vitamin D 33 ng/mL (30-100)
== END 2023-02-02 23:59 | disposition home or self-care (01) ==
PROVIDERS: PCP Family Medicine; Visit Provider Internal Medicine Rheumatology
DX: M81.0 Age-related osteoporosis without current pathological fracture (principal); M47.816 Spondylosis without myelopathy or radiculopathy, lumbar region
CPT/HCPCS: 36415; 82040; 82306; 82310; 82565; 96372; J3111

== ENCOUNTER → 2023-01-25 13:03 | Outpatient (BNVA) | payer MEDICARE, OTHER, SELFPAY | PROVIDERS: PCP Family Medicine; Visit Provider Anesthesiology Pain Medicine | DX: M47.816 Spondylosis without myelopathy or radiculopathy, lumbar region (principal) | CPT/HCPCS: 64635; 64636; J1030 ==

== ENCOUNTER → 2023-04-01 14:18 | Outpatient (BNVA) | payer MEDICARE, OTHER, SELFPAY | PROVIDERS: PCP Family Medicine; Visit Provider Internal Medicine Pulmonary Disease | DX: J44.1 Chronic obstructive pulmonary disease with (acute) exacerbation (principal); F17.210 Nicotine dependence, cigarettes, uncomplicated | CPT/HCPCS: 99214 ==

== ENCOUNTER 2023-04-10 10:14 | Emergency (ER) | payer MEDICARE, OTHER, SELFPAY ==
[2023-04-10 10:17] VITALS: BMI 21.5
--- NOTE | 2023-04-10 10:20 | XRR_ITS ---
PROCEDURE INFORMATION: Exam: XR Chest Exam date and time: 04/10/2023 10:29 AM Age: 83 years old Clinical indication: Cough and dyspnea; Additional info: Dyspnea/cough TECHNIQUE: Imaging protocol: Radiologic exam of the chest. Views: 1 view. COMPARISON: CR XR chest 2V* [id number] 09/29/2022 4:20 PM FINDINGS: Lungs: Senescent changes are present. No focal consolidation is identified. Pleural spaces: No pleural effusion. No pneumothorax. Heart/Mediastinum: No significant cardiac silhouette enlargement. Vasculature: Atherosclerotic calcifications are noted within the aortic arch. Bones/joints: Bone mineralization is decreased, suggestive of osteopenia. XR/XR chest 1V portable [id number] IMPRESSION: No acute abnormality.
--- NOTE | 2023-04-10 10:21 | CTR_ITS ---
PROCEDURE INFORMATION: Exam: CT Head Without Contrast Exam date and time: 04/10/2023 10:45 AM Age: 83 years old Clinical indication: Altered mental status/memory loss; Confusion or disorientation TECHNIQUE: Imaging protocol: Computed tomography of the head without contrast. Radiation optimization: All CT scans at this facility use at least one of these dose optimization techniques: automated exposure control; mA and/or kV adjustment per patient size (includes targeted exams where dose is matched to clinical indication); or iterative reconstruction. COMPARISON: MR head wo/w con [id number] 04/17/2022 2:35 PM RADIATION DOSE METRICS: Total DLP (mGy-cm): 934.58 FINDINGS: Brain: There is no acute intracranial hemorrhage, cerebral edema, or midline shift. Chronic microvascular ischemic changes are seen in the periventricular white matter. Age-related cerebral and cerebellar volume loss is present. Cerebral ventricles: No hydrocephalus. Paranasal sinuses: A mucous retention cyst is present in the right sphenoid sinus. There is no acute sinusitis. Mastoid air cells: The mastoid air cells are clear. Orbital cavities: The included orbital structures are unremarkable. Bones/joints: No acute fracture. Soft tissues: Unremarkable. Vasculature: Atherosclerotic calcifications are seen involving the cavernous carotid arteries. CT/CT head wo con* [id number] IMPRESSION: 1. No acute intracranial abnormality. 2. Atrophy and chronic deep white matter ischemic changes.
[2023-04-10 10:22] VITALS: BP 159/78; PULSE 78; RESP 15; TEMP 36.9; O2SAT 97
--- NOTE | 2023-04-10 10:33 | ED_ITS ---
HPI - Altered Mental Status 2 General: Chief Complaint: Altered Mental Status Stated Complaint: WEAKNESS/AMS Time Seen by Provider: 04/10/23 10:17 Source: patient Mode of arrival: EMS History of Present Illness: 83-year-old female presents to the emerg ency room with family she is moderately confused family reports she has fallen recently There is no report of loss consciousness she has been able to ambulate but has been unsteady on her feet. In the past they noted she had bladder infections which she has these symptoms. She also recently was started on continuous oxygen at 2 L/min she has not had any fever sweats or chills no vomiting or diarrhea. She denies chest or abdominal pain or flank pain at this time MD complaint: altered mental status Severity: mild Review of Systems 2 Const: Denies: fever(s) or chills Card: Denies: chest pain Resp: Denies: dyspnea GI: Denies: abdominal pain : Denies: dysuria, urinary frequency or urinary urgency Musc: Denies: neck pain or back pain Skin/Breast: Denies: rash PFSH ED 2 PFSH: Medical History Hyperparathyroidism Low vitamin D level Pain management contract signed nursing home (current) use of opiate analgesic Hypercalcemia Post-menopausal osteoporosis High risk medication use Degenerative joint disease (DJD) of lumbar spine Osteoporosis LBBB (left bundle branch block) Chronic cystitis Initially require prolonged antibiotics ultimately converted to METHENAMINE plus vitamin C with no recurrence CKD stage 3 due to type 2 diabetes mellitus Smoker Atrial fibrillation Pulmonary embolism Chronic anticoagulation Heart failure with preserved ejection fraction Lung disease CVA (cerebral vascular accident) Hypertension Gastroesophageal reflux CHF (congestive heart failure) COPD (chronic obstructive pulmonary disease) Diabetes mellitus Peripheral neuropathy Surgical History H/O tubal ligation H/O: hemorrhoidectomy Family History Denies family history of CAD (coronary artery disease) Cancer Social History Smoking and tobacco/nicotine status: current every day tobacco/nicotine user cigarettes Packs smoked per day: 1 Years cigarettes smoked: 64 [ Other cigarette details: started 1958] Second hand smoke exposure: No Alcohol intake: never Substance/Drug Use: never Adopted: No Caregiver/support person: No Lives independently: Yes Household members: spouse Housing: House Marital status: Current occupational status: retired Do you think of yourself as: Straight/Heterosexual Current gender identity: Female Physical Exam 2 Const: COMMON NORMALS: no acute distress GENERAL APPEARANCE: cooperative and comfortable ORIENTATION/CONSCIOUSNESS: Yes awake HENMT: COMMON NORMALS: normocephalic, atraumatic and hearing grossly normal bilaterally HEAD & SCALP: normocephalic and atraumatic Resp: COMMON NORMALS: normal respiratory effort, No retractions, No use of accessory muscles and clear to auscultation bilaterally AUSCULTATION: clear to auscultation bilaterally Cardio: COMMON NORMALS: regular rate, regular rhythm and No murmurs present (Cardio) RATE: regular rate RHYTHM: regular rhythm GI: COMMON NORMALS: Soft to palpation and No hepatosplenomegaly present A USCULTATION: Yes normoactive bowel sounds PALPATION: Yes Soft to palpation, No Tenderness to palpation present (GI), No Guarding due to palpation present (GI) and Yes No hepatosplenomegaly present Extremity: COMMON NORMALS: normal to inspection, capillary refill normal, no clubbing, cyanosis or edema, no calf tenderness and no pedal edema Skin: COMMON NORMALS: no rashes or lesions noted GENERAL SKIN EXAM: no rashes or lesions noted Course 2 Vital Signs: Vital signs: Vital Signs Temperature 98.4 F 04/10/23 10:22 Pulse Rate 74 04/10/23 11:25 Respiratory Rate 15 04/10/23 11:25 Blood Pressure 140/66 04/10/23 11:25 Pulse Oximetry 95 04/10/23 11:25 Oxygen Delivery Me thod Nasal Cannula 04/10/23 11:25 Oxygen Flow Rate 2 04/10/23 11:25 MDM - Altered Mental Status Medical Decision Making CT of her head is negative. Family reports she recently was started on oxygen continuously at 2 L/min. Chest x-ray unremarkable laboratory test show an isolated elevation of T. bili but otherwise is unremarkable her BUN and anion gap are normal. She does have a UA that shows has mild cystitis. Discussed with the family at this point recommend treating as an outpatient she does not appear septic does not need inpatient care at this time if she worsens or symptoms change can return to be reevaluated. Did give single dose of Rocephin and start oral antibiotics tomorrow and recheck as needed. Medical Records I reviewed the patient's medical records. Lab Data I reviewed the patient's lab results. 04/10/23 10:21 04/10/23 10:21 Radiology Impressions Chest X-Ray 04/10/23 10:20 IMPRESSION: No acute abnormality. Head CT 04/10/23 10:21 IMPRESSION: 1. No acute intracranial abnormality. 2. Atrophy and chronic deep white matter ischemic changes. Laboratory Results WBC 6.88 10^3/uL (3.29-11.43) 04/10/23 10:21 RBC 4.19 10^6/uL (3.85-5.65) 04/10/23 10:21 Hgb 13.40 g/dL (11.27-16.99) 04/10/23 10:21 Hct 40.7 % (36-47) 04/10/23 10:21 MCV 97.1 fl (85-98) 04/10/23 10:21 MCH 32.0 pg (27-33) 04/10/23 10:21 MCHC 32.9 g/dL (30-55) 04/10/23 10:21 RDW 12.4 % (12.1-15.1) 04/10/23 10:21 Plt Count 252 10^3/cmm (157-399) 04/10/23 10:21 MPV 11.7 fL (7.4-10.4) H 04/10/23 10:21 Neut % (Auto) 56.8 % 04/10/23 10:21 Lymph % (Auto) 30.4 % 04/10/23 10:21 [place] % (Auto) 7.1 % 04/10/23 10:21 Eos % (Auto) 4.7 % 04/10/23 10:21 Baso % (Auto) 0.9 % 04/10/23 10:21 Neut # (Auto) 3.91 10^3/uL (1.8-7.7) 04/10/23 10:21 Lymph # (Auto) 2.1 10^3/uL (0.8-4.8) 04/10/23 10:21 [place] # (Auto) 0.5 10^3/uL (0.2-0.9) 04/10/23 10:21 Eos # (Auto) 0.3 10^3/uL (0.0-0.8) 04/10/23 10:21 Baso # (Auto) 0.1 10^3/uL (0.0-0.1) 04/10/23 10:21 Nucleated RBC % (auto) 0 % 04/10/23 10:21 Nucleated RBCs # 0.0 /100WBC 04/10/23 10:21 Sodium 139 mmol/L (136-145) 04/10/23 10:21 Potassium 3.3 mmol/L (3.5-5.1) L 04/10/23 10:21 Chloride 99 mmol/L (98-107) 04/10/23 10:21 Carbon Dioxide 33 mmol/L (22-29) H 04/10/23 10:21 Anion Gap 10.3 (5-19) 04/10/23 10:21 BUN 18 mg/dL (8-23) 04/10/23 10:21 Creatinine 0.9 mg/dL (0.5-0.9) 04/10/23 10:21 GFR Calculation Not Reportable 04/10/23 10:21 Glucose 106 mg/dL (65-115) 04/10/23 10:21 Calculated Osmolality 290 mOsm/kg (285-295) 04/10/23 10:21 Calcium 13.4 mg/dL (8.5-10.5) H 04/10/23 10:21 Total Bilirubin 1.4 mg/dL (0.15-1.2) H 04/10/23 10:21 AST 25 U/L (0-32) 04/10/23 10:21 ALT 12 U/L (0-33) 04/10/23 10:21 Alkaline Phosphatase 115 U/L (35-105) H 04/10/23 10:21 Total Protein 6.6 g/dL (6.6-8.7) 04/10/23 10:21 Albumin 3.8 g/dL (3.5-5.2) 04/10/23 10:21 Globulin 2.8 g/dL (1.3-4.6) 04/10/23 10:21 Urine Color Yellow (Yellow) 04/10/23 11:33 Urine Appearance Cloudy (CLEAR) A 04/10/23 11:33 Urine pH 5 (5-7) 04/10/23 11:33 Ur Specific [place] 1.025 (1.005-1.030) 04/10/23 11:33 Urine Protein Neg (Negative) 04/10/23 11:33 Urine Glucose (UA) 4+ (Normal) H 04/10/23 11:33 Urine Ketones 1+ (Negative) H 04/10/23 11:33 Urine Blood 2+ (Negative) H 04/10/23 11:33 Urine Nitrate Positive (Negative) H 04/10/23 11:33 Urine Bilirubin 1+ (Negative) H 04/10/23 11:33 Urine Urobilinogen 4 mg/dL (Negative) H 04/10/23 11:33 Ur Leukocyte Esterase 1+ (Negative) H 04/10/23 11:33 Urine RBC 5-10 /hpf (0-2) H 04/10/23 11:33 Urine WBC 15-25 /hpf (0-5) H 04/10/23 11:33 Ur Squamous Epith Cells 0-4 /hpf (0-5) H 04/10/23 11:33 Amorphous Sediment Not Reportable 04/10/23 11:33 Urine Bacteria 4+ /hpf (NONE) H 04/10/23 11:33 All radiology interpretation(s) finalized by discharge Discharge Plan Discharge Patient Disposition: Home Clinical Impression: Cystitis Condition: Stable Prescriptions: New Macrobid 100 mg capsule 100 mg PO BID 7 Days Qty: 14 0RF Rx Instructions: must administer with a meal/food No Action (DME) lancets [OneTouch Delica Plus Lancet] 33 gauge misc See Rx Instructions .ROUTE .COMPLEX Qty: 100 3RF Dose Instruction: USE 1 LANCET TO CHECK FASTING BLOOD SUGARS DAILY AND 1 HOUR AFTER EATING NEEDED LIMIT OF ONE CHECK PER DAY Rx Instructions: USE 1 LANCET TO CHECK FASTING BLOOD SUGARS DAILY AND 1 HOUR AFTER EATING NEEDED LIMIT OF ONE CHECK PER DAY cholecalciferol (vitamin D3) 50 mcg (2,000 unit) capsule 50 mcg PO DAILY metoprolol tartrate 25 mg tablet 25 mg PO DAILY tiotropium bromide [Spiriva with HandiHaler] 18 mcg capsule, w/inhalation device 1 cap inhalation DAILY Qty: 60 6RF Rx Instructions: puncture 1 cap using device; one dose = 2 inhalations Invokana 100 mg tablet 100 mg PO DAILY Qty: 90 3RF albuterol sulfate [Ventolin HFA] 90 mcg/actuation HFA aerosol inhaler See Rx Instructions .ROUTE .COMPLEX Qty: 18 11RF Dose Instruction: INHALE 1 TO 2 PUFFS BY MOUTH EVERY 4 HOURS NEEDED FOR WHEEZING Rx Instructions: INHALE 1 TO 2 PUFFS BY MOUTH EVERY 4 HOURS NEEDED FOR WHEEZING gabapentin 600 mg tablet See Rx Instructions .ROUTE .COMPLEX Qty: 90 5RF Dose Instruction: TAKE 1 TABLET BY MOUTH THREE TIMES DAILY FOR NEUROPATHY Rx Instructions: TAKE 1 TABLET BY MOUTH THREE TIMES DAILY FOR NEUROPATHY (DME) OneTouch Ultra Test Strip See Rx Instructions .ROUTE .COMPLEX Qty: 100 3RF Dose Instruction: USE 1 STRIP TO CHECK GLUCOSE ONCE DAILY AND 1 HOUR POST PRANDAL NEEDED. (MAX ONCE PER DAY, E11.9) Rx Instructions: USE 1 STRIP TO CHECK GLUCOSE ONCE DAILY AND 1 HOUR POST PRANDAL NEEDED. (MAX ONCE PER DAY, E11.9) apixaban 2.5 mg tablet 2.5 mg PO BID Qty: 90 3RF oxycodone-acetaminophen 10-325 mg tablet 1 tab PO QID MDD 4 tabs PRN (Reason: pain) 30 Days Qty: 120 0RF teriparatide [Forteo] 20 mcg/dose (600mcg/2.4mL) pen injector 20 mcg SUBCUT DAILY Qty: 2.4 3RF Acetaminophen Extra Strength 500 mg Tablet 500 mg PO QID PRN (Reason: Fever Or Pain) fluoxetine 20 mg Capsule 20 mg PO DAILY albuterol sulfate 2.5 mg inhalation PRN PRN (Reason: Shortness Of Breath Or Wheezing) Discharge Orders: Discharge ED (Routine); Ordered 04/10/23 Ordered By: Bharat Reddy Referrals: Austen Landry DO [Primary Care Provider] - Discharge Diet: Usual diet Discharge Activity: Increase activity as tolerated Patient Instructions: Opioid Safety, Pain Management Activity Restrictions/Additional Instructions: Thank you for choosing [facility] for your healthcare needs today. Please realize this is an emergency room and that we are providing you with a medical screening exam and this may not be complete and all inclusive of all the testing and or work up that you may need to determine your ailment or severity of your illness. It is very important that you follow up as instructed or that you return to the Emergency Department should you have concerns or if your condition changes or worsens in any way. You are seen today for complaints of mild confusion. Lab work did not show any significant carlos on the blood work however your urine showed signs of cystitis. You are given a shot of Rocephin in the emergency room start oral antibiotics 1 pill twice daily for 7 days tomorrow. Coding Level of Care Code ED Accounting Analyst for Zeenat Calderon
[2023-04-10 10:34] LABS: Basophils # 0.1 10^3/uL (0.0-0.1); Basophils % 0.9 %; Eosinophils # 0.3 10^3/uL (0.0-0.8); Eosinophils % 4.7 %; Hematocrit 40.7 % (36-47); Lymphocytes # 2.1 10^3/uL (0.8-4.8); Lymphocytes % 30.4 %; Mean Corpuscular HGB Conc 32.9 g/dL (30-55); Mean Corpuscular Volume 97.1 fl (85-98); Mean Platelet Volume 11.7 fL (7.4-10.4); Monocytes # 0.5 10^3/uL (0.2-0.9); Monocytes % 7.1 %; Neutrophils # 3.91 10^3/uL (1.8-7.7); Neutrophils % 56.8 %; Nucleated Red Blood Cells % 0 %; Platelet Count 252 10^3/cmm (157-399); Red Blood Count 4.19 10^6/uL (3.85-5.65); Red Cell Distribution Width 12.4 % (12.1-15.1); White Blood Count 6.88 10^3/uL (3.29-11.43)
[2023-04-10 10:48] LABS: Alanine Aminotransferase 12 U/L (0-33); Albumin Level 3.8 g/dL (3.5-5.2); Alkaline Phosphatase 115 U/L (35-105); Anion Gap 10.3 (5-19); Aspartate Amino Transferase 25 U/L (0-32); Blood Urea Nitrogen 18 mg/dL (8-23); Calcium 13.4 mg/dL (8.5-10.5); Carbon Dioxide 33 mmol/L (22-29); Chloride 99 mmol/L (98-107); Creatinine Clr Calc Pharmacy 51.9747; Globulin 2.8 g/dL (1.3-4.6); Glucose 106 mg/dL (65-115); Osmolality Calculated 290 mOsm/kg (285-295); Potassium 3.3 mmol/L (3.5-5.1); Sodium 139 mmol/L (136-145); Total Bilirubin 1.4 mg/dL (0.15-1.2); Total Protein 6.6 g/dL (6.6-8.7)
[2023-04-10 10:57] VITALS: BP 148/82; PULSE 87; RESP 17; O2SAT 96
[2023-04-10 11:25] VITALS: BP 140/66; PULSE 74; RESP 15; O2SAT 95
[2023-04-10 12:00] LABS: Blood Urine 2+ (Negative); Glucose Urine UA 4+ (Normal); Ketones Urine 1+ (Negative); Nitrate Urine Positive (Negative); Protein Urine Neg (Negative); Specific Gravity, Urine 1.025 (1.005-1.030); Urine Appearance Cloudy (CLEAR); Urine Color Yellow (Yellow); pH Urine 5 (5-7)
[2023-04-10 12:01] LABS: Add Urine Culture? Yes; Add Urine Microscopic? YES; Bacteria Urine 4+ /hpf; Bilirubin Urine 1+ (Negative); Leukocyte Esterase Urine 1+ (Negative); Squamous Epithelial Cell Urine 0-4 /hpf (0-5); Urobilinogen Urine 4 mg/dL (Negative); WBC Urine 15-25 /hpf (0-5)
[2023-04-10] MEDS: cefTRIAXone 1,000 MG in sodium chloride 0.9% (plus) 50 ML 100 MG IV (12:25)
[2023-04-10 12:27] VITALS: BP 132/66; PULSE 75; RESP 15; O2SAT 97
--- NOTE | 2023-04-10 12:33 | PC.PHAR ---
not on all meds were verified medications verified were what was on ext med history
[2023-04-10 13:17] VITALS: BP 136/76; PULSE 80; RESP 17; O2SAT 94
== END 2023-04-10 13:19 | disposition home or self-care (01) ==
PROVIDERS: Emergency Provider Family Medicine; PCP Family Medicine
DX: N30.90 Cystitis, unspecified without hematuria (principal); F17.210 Nicotine dependence, cigarettes, uncomplicated; I13.0 Hypertensive heart and chronic kidney disease with heart failure and stage 1 through stage 4 chronic kidney disease, or unspecified chronic kidney disease; E11.22 Type 2 diabetes mellitus with diabetic chronic kidney disease; N18.30 Chronic kidney disease, stage 3 unspecified; I50.9 Heart failure, unspecified; Z86.73 Personal history of transient ischemic attack (TIA), and cerebral infarction without residual deficits; J44.9 Chronic obstructive pulmonary disease, unspecified
CPT/HCPCS: 70450; 71045; 80053; 81001; 85025; 87077; 87086; 87186; 96365; 99285; J0696

== ENCOUNTER 2023-04-20 14:31 | Emergency (ER) | payer MEDICARE, OTHER, SELFPAY ==
[2023-04-20 14:33] VITALS: BMI 16.5
[2023-04-20 14:36] VITALS: BP 142/73; PULSE 104; RESP 17; TEMP 36.8; O2SAT 97
--- NOTE | 2023-04-20 14:57 | ECG_ITS ---
[facility] Test Date: 2023-04-20 Pat Name: Janet Cooper Department: Room: Gender: Female Or Director: : 1940 Requested By: Bharat Negro Order Number: [id number] Caryn MD: Marj Goff M.D. Measurements Intervals [place] Rate: 100 P: 80 ME: 199 QRS: 8 QRSD: 140 T: 74 QT: 373 QTc: 481 Interpretive Statements SINUS TACHYCARDIA LEFT BUNDLE BRANCH BLOCK [120+ ms QRS DURATION, 80+ ms Q/S IN V1/V2, 85+ ms R IN I/aVL/V5/V6] Compared to ECG 05/03/2019 05:47:55 First degree AV block no longer present Electronically Signed On 04-20-2023 19:38:09 SNOW FENCE ERECTOR by Marj Goff M.D. [email or web address]
--- NOTE | 2023-04-20 15:04 | W.ED.AMS ---
HPI - Altered Mental Status General: Chief Complaint: Altered Mental Status Stated Complaint: AMS Time Seen by Provider: 04/20/23 14:46 Source: patient and family Mode of arrival: EMS History of Present Illness: 83-year-old female presents emergency room with family. She has been rapidly declining for the last several weeks. Has had problems with hypercalcemia has been treated in the past and not currently receiving any treatment. She is steadily declining there was concern today but altered mental status monitor evaluated for acute issues. She has a history of chronic cystitis she has no particular worsening symptoms of the bladder issues at this time. She not had any fever no shortness of breath. She is awake and from some can answer some questions is very weak and lethargic patient states she has been like this in the family confirms that it has been this way over the last several weeks progressively worsening MD complaint: weakness Onset (ago): week(s) Timing confirmed by: spouse and family member Severity: severe Consistency of symptoms: Getting Worse Associated symptoms: Deny auditory hallucinations, visual hallucinations, delusions, depression, homicidal ideation, racing thoughts or suicidal ideation Review of Systems Const: Denies: fever(s) or chills Card: Denies: chest pain Resp: Denies: dyspnea GI: Denies: abdominal pain : Denies: dysuria, urinary frequency or urinary urgency Musc: Denies: neck pain or back pain Skin/Breast: Denies: rash Psych: Denies: depression, visual hallucinations, auditory hallucinations, suicidal ideation or homicidal ideation [facility] ED PFSH: Medical History Hyperparathyroidism Low vitamin D level Pain management contract signed assisted (current) use of opiate analgesic Hypercalcemia Post-menopausal osteoporosis High risk medication use Degenerative joint disease (DJD) of lumbar spine Osteoporosis LBBB (left bundle branch block) Chronic cystitis Initially require prolonged antibiotics ultimately converted to METHENAMINE plus vitamin C with no recurrence CKD stage 3 due to type 2 diabetes mellitus Smoker Atrial fibrillation Pulmonary embolism Chronic anticoagulation Heart failure with preserved ejection fraction Lung disease CVA (cerebral vascular accident) Hypertension Gastroesophageal reflux CHF (congestive heart failure) COPD (chronic obstructive pulmonary disease) Diabetes mellitus Peripheral neuropathy Surgical History H/O tubal ligation H/O: hemorrhoidectomy Family History Denies family history of CAD (coronary artery disease) Cancer Social History Smoking and tobacco/nicotine status: current every day tobacco/nicotine user cigarettes Packs smoked per day: 1 Years cigarettes smoked: 64 [ Other cigarette details: started 1958] Second hand smoke exposure: No Alcohol intake: never Substance/Drug Use: never Adopted: No Caregiver/support person: No Lives independently: Yes Household members: spouse Housing: House Marital status: Current occupational status: retired Do you think of yourself as: Straight/Heterosexual Current gender identity: Female Physical Exam Const: COMMON NORMALS: no acute distress GENERAL APPEARANCE: cooperative and lethargic ORIENTATION/CONSCIOUSNESS: Yes awake and Yes lethargic HENMT: COMMON NORMALS: normocephalic and atraumatic HEAD & SCALP: normocephalic and atraumatic Resp: COMMON NORMALS: normal respiratory effort, No retractions, No use of accessory muscles and clear to auscultation bilaterally AUSCULTATION: clear to auscultation bilaterally Cardio: COMMON NORMALS: regular rate, regular rhythm and No murmurs present (Cardio) RATE: regular rate RHYTHM: regular rhythm GI: COMMON NORMALS: Soft to palpation and No hepatosplenomegaly present AUSCULTATION: Yes normoactive bowel sounds PALPATION: Yes Soft to palpation, No Tenderness to palpation present (GI), No Guarding due to palpation present (GI) and Yes No hepatosplenomegaly present Extremity: COMMON NORMALS: normal to inspection, capillary refill normal, no clubbing, cyanosis or edema, no calf tenderness and no pedal edema Neuro: SENSORIUM/ORIENTATION: Yes lethargic Psych: THOUGHT CONTENT: No delusions Skin: COMMON NORMALS: no rashes or lesions noted GENERAL SKIN EXAM: no rashes or lesions noted Course Vital Signs: Vital signs: Vital Signs Temperature 98.2 F 04/20/23 14:36 Pulse Rate 104 H 04/20/23 14:36 Respiratory Rate 17 04/20/23 14:36 Blood Pressure 142/73 04/20/23 14:36 Pulse Oximetry 97 04/20/23 14:36 Oxygen Delivery Me thod Nasal Cannula 04/20/23 14:36 Oxygen Flow Rate 2 04/20/23 14:36 MDM - Altered Mental Status Medical Decision Making Patient's calcium is climbing significantly her alk phos is also elevated. Discussed with the family we can admit for reevaluation for hypocalcemia including evaluation for occult tumor. After extensive discussion family decided they do not wish to do this. At this point they would not treat any further and did not want to undergo the evaluation process since they would not treat anything they found anyway. After considerable discussion with several family members they wish to be discharged and complete enrollment in hospice. Given her steady decline in the last several months think this is probably appropriate. Can follow-up as needed or if things change can return to the emergency room. Medical Records I reviewed the patient's medical records. Lab Data I reviewed the patient's lab results. 04/20/23 15:03 04/20/23 15:03 Laboratory Results WBC 8.64 10^3/uL (3.29-11.43) 04/20/23 15:03 RBC 4.15 10^6/uL (3.85-5.65) 04/20/23 15:03 Hgb 13.10 g/dL (11.27-16.99) 04/20/23 15:03 Hct 39.5 % (36-47) 04/20/23 15:03 MCV 95.2 fl (85-98) 04/20/23 15:03 MCH 31.6 pg (27-33) 04/20/23 15:03 MCHC 33.2 g/dL (30-55) 04/20/23 15:03 RDW 12.9 % (12.1-15.1) 04/20/23 15:03 Plt Count 211 10^3/cmm (157-399) 04/20/23 15:03 MPV 11.9 fL (7.4-10.4) H 04/20/23 15:03 Neut % (Auto) 74.9 % 04/20/23 15:03 Lymph % (Auto) 14.4 % 04/20/23 15:03 [place] % (Auto) 8.3 % 04/20/23 15:03 Eos % (Auto) 1.6 % 04/20/23 15:03 Baso % (Auto) 0.5 % 04/20/23 15:03 Neut # (Auto) 6.47 10^3/uL (1.8-7.7) 04/20/23 15:03 Lymph # (Auto) 1.2 10^3/uL (0.8-4.8) 04/20/23 15:03 [place] # (Auto) 0.7 10^3/uL (0.2-0.9) 04/20/23 15:03 Eos # (Auto) 0.1 10^3/uL (0.0-0.8) 04/20/23 15:03 Baso # (Auto) 0.0 10^3/uL (0.0-0.1) 04/20/23 15:03 Nucleated RBC % (auto) 0 % 04/20/23 15:03 Nucleated RBCs # 0.0 /100WBC 04/20/23 15:03 Sodium 142 mmol/L (136-145) 04/20/23 15:03 Potassium 3.3 mmol/L (3.5-5.1) L 04/20/23 15:03 Chloride 101 mmol/L (98-107) 04/20/23 15:03 Carbon Dioxide 32 mmol/L (22-29) H 04/20/23 15:03 Anion Gap 12.3 (5-19) 04/20/23 15:03 BUN 46 mg/dL (8-23) H 04/20/23 15:03 Creatinine 1.6 mg/dL (0.5-0.9) H 04/20/23 15:03 GFR Calculation Not Reportable 04/20/23 15:03 Glucose 113 mg/dL (65-115) 04/20/23 15:03 Calculated Osmolality 307 mOsm/kg (285-295) H 04/20/23 15:03 Calcium 14.7 mg/dL (8.5-10.5) H* 04/20/23 15:03 Total Bilirubin 1.1 mg/dL (0.15-1.2) 04/20/23 15:03 AST 15 U/L (0-32) 04/20/23 15:03 ALT 7 U/L (0-33) 04/20/23 15:03 Alkaline Phosphatase 143 U/L (35-105) H 04/20/23 15:03 Troponin T Baseline 62 ng/L (0-10) H 04/20/23 15:03 Total Protein 5.9 g/dL (6.6-8.7) L 04/20/23 15:03 Albumin 3.5 g/dL (3.5-5.2) 04/20/23 15:03 Globulin 2.4 g/dL (1.3-4.6) 04/20/23 15:03 Urine Color Dark yellow (Yellow) 04/20/23 15:31 Urine Appearance Clear (CLEAR) 04/20/23 15:31 Urine pH 5 (5-7) 04/20/23 15:31 Ur Specific [place] 1.025 (1.005-1.030) 04/20/23 15:31 Urine Protein 1+ (Negative) H 04/20/23 15:31 Urine Glucose (UA) Norm (Normal) 04/20/23 15:31 Urine Ketones Negative (Negative) 04/20/23 15:31 Urine Blood Neg (Negative) 04/20/23 15:31 Urine Nitrate Negative (Negative) 04/20/23 15:31 Urine Bilirubin 1+ (Negative) H 04/20/23 15:31 Urine Urobilinogen Norm mg/dL (Negative) 04/20/23 15:31 Ur Leukocyte Esterase Negative (Negative) 04/20/23 15:31 Urine RBC 0-4 /hpf (0-2) H 04/20/23 15:31 Urine WBC 0-4 /hpf (0-5) H 04/20/23 15:31 Ur Squamous Epith Cells 0-4 /hpf (0-5) H 04/20/23 15:31 Calcium Oxalate Crystal 0-4 /hpf H 04/20/23 15:31 Amorphous Sediment Trace /hpf 04/20/23 15:31 Urine Bacteria Trace /hpf (NONE) 04/20/23 15:31 Urine Mucus Trace /hpf 04/20/23 15:31 No radiology studies performed this visit Discharge Plan Discharge Patient Disposition: Home Clinical Impression: Hypercalcemia, Chronic cystitis, Weakness generalized, CKD stage 3 due to type 2 diabetes mellitus Condition: Stable Prescriptions: New morphine concentrate 100 mg/5 mL (20 mg/mL) Solution 20 mg sublingual DIRECTED MDD N/A PRN (Reason: Pain/SOB) 14 Days Qty: 30 0RF Rx Instructions: 0.25ml-1ml q1H PRN may increase to 0.5ml-1ml Q1H PRN Dulcolax (bisacodyl) 10 mg Suppository 10 mg [place] DAILY PRN (Reason: Constipation) Qty: 5 0RF Rx Instructions: 1 suppository per rectum every day PRN for constipation. atropine 1 % Drops 4 drp sublingual Q4H PRN (Reason: Secretions) Qty: 5 0RF Rx Instructions: 4 drops SL q 4 hours PRN for terminal congestion/excessive secretions. ondansetron 4 mg Tablet,Disintegrating 4 mg translingual Q4H PRN (Reason: Nausea) Qty: 5 0RF Rx Instructions: Dissolve 1 tablet under tongue every 4 hours PRN for nausea lorazepam 2 mg/mL Concentrate 2 mg sublingual Q4H PRN (Reason: Anxiety/Seizure) Qty: 30 0RF Rx Instructions: 0.25ml-1ml q4H PRN Anxiety/Seizure Start 0.25ml may increase to 0.5ml-1ml q4H No Action (DME) lancets [OneTouch Delica Plus Lancet] 33 gauge misc See Rx Instructions .ROUTE .COMPLEX Qty: 100 3RF Dose Instruction: USE 1 LANCET TO CHECK FASTING BLOOD SUGARS DAILY AND 1 HOUR AFTER EATING NEEDED LIMIT OF ONE CHECK PER DAY Rx Instructions: USE 1 LANCET TO CHECK FASTING BLOOD SUGARS DAILY AND 1 HOUR AFTER EATING NEEDED LIMIT OF ONE CHECK PER DAY cholecalciferol (vitamin D3) 50 mcg (2,000 unit) capsule 50 mcg PO DAILY tiotropium bromide [Spiriva with HandiHaler] 18 mcg capsule, w/inhalation device 1 cap inhalation DAILY Qty: 60 6RF Rx Instructions: puncture 1 cap using device; one dose = 2 inhalations (DME) OneTouch Ultra Test Strip See Rx Instructions .ROUTE .COMPLEX Qty: 100 3RF Dose Instruction: USE 1 STRIP TO CHECK GLUCOSE ONCE DAILY AND 1 HOUR POST PRANDAL NEEDED. (MAX ONCE PER DAY, E11.9) Rx Instructions: USE 1 STRIP TO CHECK GLUCOSE ONCE DAILY AND 1 HOUR POST PRANDAL NEEDED. (MAX ONCE PER DAY, E11.9) apixaban 2.5 mg tablet 2.5 mg PO BID Qty: 90 3RF oxycodone-acetaminophen 10-325 mg tablet 1 tab PO QID MDD 4 tabs PRN (Reason: pain) 30 Days Qty: 120 0RF teriparatide [Forteo] 20 mcg/dose (600mcg/2.4mL) pen injector 20 mcg SUBCUT DAILY Qty: 2.4 3RF Rx Instructions: on hold per pts 04/20/23 morphine concentrate 100 mg/5 mL (20 mg/mL) solution 20 mg sublingual DIRECTED PRN (Reason: Pain/SOB) 14 Days Qty: 30 0RF Rx Instructions: 0.25ml-1ml q1H PRN may increase to 0.5ml-1ml Q1H PRN bisacodyl 10 mg suppository 10 mg [place] DAILY PRN (Reason: constipation) Qty: 5 0RF Rx Instructions: 1 suppository per rectum every day PRN for constipation. atropine 1 % drops 4 drp sublingual Q4H PRN (Reason: secretions) Qty: 5 0RF Rx Instructions: 4 drops SL q 4 hours PRN for terminal congestion/excessive secretions. ondansetron 4 mg tablet,disintegrating 4 mg translingual Q4H PRN (Reason: nausea) Qty: 5 0RF Rx Instructions: Dissolve 1 tablet under tongue every 4 hours PRN for nausea lorazepam 2 mg/mL concentrate 2 mg sublingual Q4H PRN (Reason: Anxiety/Seizure) Qty: 30 0RF Rx Instructions: 0.25ml-1ml q4H PRN Anxiety/Seizure Start 0.25ml may increase to 0.5ml-1ml q4H acetaminophen [Acetaminophen Extra Strength] 500 mg Tablet 500 mg PO QID PRN (Reason: Fever Or Pain) albuterol sulfate 2.5 mg /3 mL (0.083 %) Solution For Nebulization 2.5 mg INHALATION Q4H PRN (Reason: Shortness Of Breath) gabapentin 600 mg tablet 600 mg PO TID Ventolin HFA 90 mcg/actuation HFA aerosol inhaler 1 - 2 puff inhalation Q4H PRN (Reason: Wheezing) Invokana 100 mg tablet 100 mg PO QAM metoprolol succinate 50 mg tablet extended release 24 hr 50 mg PO DAILY nitrofurantoin monohyd/m-cryst 100 mg capsule 100 mg PO BID Rx Instructions: for 7 days (rx filled 04/10/23) Discharge Orders: Discharge ED (Routine); Ordered 04/20/23 Ordered By: Bharat Reddy Referrals: Frantz,Austen F, DO [Primary Care Provider] - Discharge Diet: Usual diet Discharge Activity: Resume usual activity Patient Instructions: Altered Mental Status (ED), Opioid Safety, Pain Management Activity Restrictions/Additional Instructions: Thank you for choosing [facility] for your healthcare needs today. Please realize this is an emergency room and that we are providing you with a medical screening exam and this may not be complete and all inclusive of all the testing and or work up that you may need to determine your ailment or severity of your illness. It is very important that you follow up as instructed or that you return to the Emergency Department should you have concerns or if your condition changes or worsens in any way. You were seen today in the emergency room for complaints of general weakness and not feeling well and did not have an elevated white count. There was an elevation of your alk phos a slight elevation of your kidney function is significant increase in your calcium. At your request we contacted hospice who you had begin the enrollment process with earlier today to let them know that you wish to complete the enrollment process with them. Coding Level of Care Code ED Produce Team Member for Zeenat Calderon
[2023-04-20 15:18] LABS: Basophils % 0.5 %; Eosinophils # 0.1 10^3/uL (0.0-0.8); Eosinophils % 1.6 %; Hematocrit 39.5 % (36-47); Lymphocytes # 1.2 10^3/uL (0.8-4.8); Lymphocytes % 14.4 %; Mean Corpuscular HGB Conc 33.2 g/dL (30-55); Mean Corpuscular Hemoglobin 31.6 pg (27-33); Mean Corpuscular Volume 95.2 fl (85-98); Mean Platelet Volume 11.9 fL (7.4-10.4); Monocytes # 0.7 10^3/uL (0.2-0.9); Monocytes % 8.3 %; Neutrophils # 6.47 10^3/uL (1.8-7.7); Neutrophils % 74.9 %; Nucleated Red Blood Cells % 0 %; Platelet Count 211 10^3/cmm (157-399); Red Blood Count 4.15 10^6/uL (3.85-5.65); Red Cell Distribution Width 12.9 % (12.1-15.1); White Blood Count 8.64 10^3/uL (3.29-11.43)
[2023-04-20 15:36] LABS: Alanine Aminotransferase 7 U/L (0-33); Albumin Level 3.5 g/dL (3.5-5.2); Alkaline Phosphatase 143 U/L (35-105); Anion Gap 12.3 (5-19); Aspartate Amino Transferase 15 U/L (0-32); Blood Urea Nitrogen 46 mg/dL (8-23); Carbon Dioxide 32 mmol/L (22-29); Chloride 101 mmol/L (98-107); Globulin 2.4 g/dL (1.3-4.6); Glucose 113 mg/dL (65-115); Osmolality Calculated 307 mOsm/kg (285-295); Potassium 3.3 mmol/L (3.5-5.1); Sodium 142 mmol/L (136-145); Total Bilirubin 1.1 mg/dL (0.15-1.2); Total Protein 5.9 g/dL (6.6-8.7); Troponin(5th) Baseline 62 ng/L (0-10)
[2023-04-20] MEDS: sodium chloride 0.9% 1,000 ML 999 ML IV (15:36)
[2023-04-20] MEDS: ondansetron 2 mg/ML SDV 2 mL 4 MG IVP (15:36)
[2023-04-20 15:43] LABS: Calcium 14.7 mg/dL (8.5-10.5)
--- NOTE | 2023-04-20 15:45 | PC.PHAR ---
pts verified pts medications-pts states the pt takes apixaban 2.5mg bid [facility] states not filled for the pt rx written 03/14/23-pts states the pt is no longer taking fluoxetine 20mg daily [facility] last filled 07/09/22 90d/s-pts states the pt still takes gabapentin 600mg tid rx last filled 05/05/22 30d/s-pts states the pt still takes metoprolol succ er 50mg daily [facility] last filled 11/10/22 90d/s s has refills-pts states the pts nieshao is on hold-pts states the pt has a spiriva handihaler but states she doesnt use it-pts states the pt has macrobid 100mg bid states she has 2 caps left to take rx filled 04/10/23 7d/s-notes are made in the pharmacy comment
[2023-04-20 15:46] LABS: Blood Urine Neg (Negative); Glucose Urine UA Norm (Normal); Ketones Urine Negative (Negative); Protein Urine 1+ (Negative); Specific Gravity, Urine 1.025 (1.005-1.030); Urine Appearance Clear (CLEAR); Urine Color Dark Yellow (Yellow); pH Urine 5 (5-7)
[2023-04-20 15:47] LABS: Add Urine Microscopic? YES; Bilirubin Urine 1+ (Negative); Leukocyte Esterase Urine Negative (Negative); Nitrate Urine Negative (Negative); Urobilinogen Urine Norm (Negative)
[2023-04-20 16:13] LABS: Add Urine Culture? No; Amorphous Sediment Urine TRACE /hpf; Bacteria Urine TRACE /hpf; Calcium Oxalate Crystals Urine 0-4 /hpf; Mucus Urine TRACE /hpf; RBC Urine 0-4 /hpf (0-2); Squamous Epithelial Cell Urine 0-4 /hpf (0-5); WBC Urine 0-4 /hpf (0-5)
--- NOTE | 2023-04-20 16:47 | ECG_ITS ---
[facility] Test Date: 2023-07-21 Pat Name: Janet Cooper Department: Room: Gender: Female [employer]: : 1940 Requested By: Bharat Negor Order Number: [id number] Caryn MD: Nikolas Cueto M.D. Measurements Intervals [place] Rate: 86 P: 86 VA: 142 QRS: 77 QRSD: 98 T: 50 QT: 378 QTc: 455 Interpretive Statements SINUS RHYTHM POSSIBLE LEFT ATRIAL ENLARGEMENT [-0.1mV P-WAVE IN V1/V2] MODERATE ST DEPRESSION [0.05+ mV ST DEPRESSION] Compared to ECG 04/20/2023 14:57:16 ST (T wave) deviation now present Sinus tachycardia no longer present Left bundle-branch block no longer present Electronically Signed On 07-22-2023 6:37:15 CDT by Nikolas Cueto M.D. [email or web address]
== END 2023-04-20 18:37 | disposition home or self-care (01) ==
PROVIDERS: Emergency Provider Family Medicine; PCP Family Medicine
DX: R53.1 Weakness (principal); E83.52 Hypercalcemia; E11.22 Type 2 diabetes mellitus with diabetic chronic kidney disease; I13.0 Hypertensive heart and chronic kidney disease with heart failure and stage 1 through stage 4 chronic kidney disease, or unspecified chronic kidney disease; N30.20 Other chronic cystitis without hematuria; F17.210 Nicotine dependence, cigarettes, uncomplicated; N18.30 Chronic kidney disease, stage 3 unspecified; I50.22 Chronic systolic (congestive) heart failure
CPT/HCPCS: 36415; 80053; 81001; 84484; 85025; 93005; 96374; 99284; J2405; J7030